=== PATIENT | male | born 1935 | race African-American/Black ===

== ENCOUNTER 2016-12-08 16:57 | Inpatient (IN) | payer MEDICARE ==
[~2016-12-08] VITALS: Ht 167.6 cm; Wt 80.5 kg
[2016-12-08] MEDS ORDERED: IV NORMAL SALINE 1000ML BAG 1,000 ML IV SCH (17:09)
[2016-12-08] MEDS ORDERED: 0.9 % SODIUM CHLORIDE 10 ML DISP.SYRIN. IV PRN (17:15)
[2016-12-08] MEDS ORDERED: FAMOTIDINE 20 MG/2 ML VIAL IVP ONE (17:15)
[2016-12-08] MEDS ORDERED: ONDANSETRON PF 4 MG/2 ML VIAL. IV ONE (17:15)
[2016-12-08] MEDS: HYDROmorphone 2 MG/ML VIAL IV/SQ PRN ×2 (17:29→18:44)
--- NOTE | 2016-12-08 17:29 | PHYS DOC ---
Past Medical History Past Medical History: High Cholesterol, [place], Other Additional Past Medical Histor: PARAPLEGIC, HEMMORRHOIDS Past Surgical History: Other Additional Past Surgical Histo: CARDIAC STENTS, BACK SX, R HAND MIDDLE FINGER AMPUTATION, NECK SX Alcohol Use: Occasionally Drug Use: None Adult General Chief Complaint Chief Complaint: ABDOMINAL PAIN HPI HPI Patient is a pleasant 81-year-old male with a 12 hour history of abdominal pain diffusely described as cramping in waves anywhere from a 4 of 10 to an 8 of 10 with nausea, diarrhea nonbilious nonbloody approximately 3-4 episodes. Patient has been feeling fine until this morning when he woke up with loose stool crampy lower abdominal pain waiting from the umbilicus to the right lower quadrant and the left lower quadrant. He describes no UTI symptoms, no hematuria no back pain but has had some fevers subjectively with chills. He denies any sick contacts, recent travel outside the country, or antibiotic use. He is normally living at home alone he is wheelchair bound but is able to function when family checks on him periodically. He's been able to care for himself without issue. As a trauma, denies any blood in the stool is noted. Pain was not improved with [id number] Motrin. Review of Systems Review of Systems Constitutional: He has stated he has had some fevers subjectively and chills. Eyes: Denies change in visual acuity, redness, or eye pain [] HENT: Denies nasal congestion or sore throat [] Respiratory: Denies cough or shortness of breath [] Cardiovascular: No additional information not addressed in HPI [] GI: History of provided describes crampy abdominal pain, nausea without vomiting he has had some diarrhea without blood or mucus in his stools. : Denies dysuria or hematuria [] Musculoskeletal: Denies back pain or joint pain [] Integument: Denies rash or skin lesions [] Neurologic: Denies headache, focal weakness or sensory changes [] Endocrine: Denies polyuria or polydipsia [] Current Medications Current Medications Current Medications Medications (Trade) Dose Ordered Sig/John Start Time Stop Time Status Last Admin Dose Admin Famotidine (Pepcid) 20 mg 1X ONCE 12/08/16 17:15 12/08/16 17:16 DC 12/08/16 17:28 20 MG Hydromorphone HCl (Dilaudid) 0.5 mg PRN Q15MIN PRN 12/08/16 17:15 12/09/16 17:14 12/08/16 18:44 0.5 MG Iohexol (Omnipaque 300 Mg/ml) 75 ml 1X ONCE 12/08/16 18:30 12/08/16 18:31 DC 12/08/16 19:09 75 ML Ondansetron HCl (Zofran) 4 mg 1X ONCE 12/08/16 17:15 12/08/16 17:16 DC 12/08/16 17:28 4 MG Sodium Chloride (Normal Saline Flush) 10 ml QSHIFT PRN 12/08/16 17:15 Allergies Allergies Allergies Coded Allergies Type Severity Reaction Last Updated Verified No Known Drug Allergies 12/08/16 No Physical Exam Physical Exam Auto signs reviewed patient not hypoxic, not febrile, normotensive Constitutional: Well developed, mildly cachectic but in no acute distress nontoxic in appearance no diaphoresis. HENT: Normocephalic, atraumatic, bilateral external ears normal, right mucous members with poor dentition no oral exudates, nose normal. [] Eyes: PERRLA, EOMI, conjunctiva normal, no discharge. [] Neck: Normal range of motion, no tenderness, supple, no stridor. [] Cardiovascular:Heart rate regular rhythm, no murmur [] Lungs & Thorax: Bilateral breath sounds clear to auscultation [] Abdomen: Diffuse abdominal pain without guarding rebound or organomegaly. No Drake's or McBurney's point tenderness to palpation Rosving's sign. No focal focal tenderness over the suprapubic region. Skin: Warm, dry, no erythema, no rash. [] Back: No tenderness, no CVA tenderness. [] Extremities: No tenderness, no cyanosis, no clubbing, ROM intact, no edema. [] Neurologic: Alert and oriented X 3, normal motor function, normal sensory function, Psychologic: Affect normal, judgement normal, mood normal. [] Current Patient Data Vital Signs Vital Signs Date Time Temp Pulse Resp B/P (MAP) Pulse Ox O2 Delivery O2 Flow Rate FiO2 12/08/16 19:13 84 16 123/68 (86) Room Air 12/08/16 18:44 93 12/08/16 17:00 99.4 99.4 Lab Values Laboratory Tests Test 12/08/16 17:09 12/08/16 17:36 White Blood Count 9.5 x10^3/uL (4.0-11.0) Red Blood Count 4.82 x10^6/uL (4.30-5.70) Hemoglobin 13.0 g/dL (13.0-17.5) Hematocrit 40.6 % (39.0-53.0) Mean Corpuscular Volume 84 fL (79-100) Mean Corpuscular Hemoglobin 27 pg (25-35) Mean Corpuscular Hemoglobin Concent 32 g/dL (31-37) Red Cell Distribution Width 17.1 % (11.5-14.5) H Platelet Count 253 x10^3/uL (140-400) Neutrophils (%) (Auto) 75 % (31-73) H Lymphocytes (%) (Auto) 16 % (24-48) L Monocytes (%) (Auto) 7 % (0-9) Eosinophils (%) (Auto) 2 % (0-3) Basophils (%) (Auto) 1 % (0-3) Neutrophils # (Auto) 7.1 x10^3uL (1.8-7.7) Lymphocytes # (Auto) 1.5 x10^3/uL (1.0-4.8) Monocytes # (Auto) 0.6 x10^3/uL (0.0-1.1) Eosinophils # (Auto) 0.2 x10^3/uL (0.0-0.7) Basophils # (Auto) 0.1 x10^3/uL (0.0-0.2) Troponin I Quantitative < 0.017 ng/mL (0.000-0.055) Sodium Level 144 mmol/L (136-145) Potassium Level 3.8 mmol/L (3.5-5.1) Chloride Level 107 mmol/L (98-107) Carbon Dioxide Level 28 mmol/L (21-32) Anion Gap 9 (6-14) Blood Urea Nitrogen 10 mg/dL (8-26) Creatinine 0.5 mg/dL (0.7-1.3) L Estimated GFR (Cockcroft-Gault) 159.6 BUN/Creatinine Ratio 20 (6-20) Glucose Level 127 mg/dL (70-99) H Calcium Level 9.2 mg/dL (8.5-10.1) Total Bilirubin 0.5 mg/dL (0.2-1.0) Aspartate Amino Transferase (AST) 14 U/L (15-37) L Alanine Aminotransferase (ALT) 13 U/L (16-63) L Alkaline Phosphatase 96 U/L (46-116) Creatine Kinase 72 U/L (39-308) Creatine Kinase MB (Mass) 3.1 ng/mL (0.0-3.6) Creatine Kinase MB Relative Index % (0-4) Total Protein 8.1 g/dL (6.4-8.2) Albumin 3.4 g/dL (3.4-5.0) Albumin/Globulin Ratio 0.7 (1.0-1.7) L Lipase 66 U/L (73-393) L Laboratory Tests 12/08/16 17:09 Laboratory Tests 12/08/16 17:36 EKG EKG EKG timed 1728 12/08/2016 demonstrates a heart rate of 85 RI interval of 144 within normal limits QRS within normal limits 104 demonstrates Q-wave in the anterior leads and V1 with a nonspecific is also considerable movement artifact. By Dr. Calix. [] Radiology/Procedures Radiology/Procedures [] Course & Med Decision Making Course & Med Decision Making Pertinent Labs and Imaging studies reviewed. (See chart for details) H with acute onset of diarrheal illness with nausea without vomiting with subjective fevers and chills. He does at home alone but his history is not suggestive of an infectious etiology associated with raw food consumption infectious exposure , or antibiotics. We will check for blood C. difficile colitis given his state I will offer him admission to the hospital if he is no longer able to tolerate by mouth medication secondary to his nausea. Cell count is mildly elevated with a mild left shift which is likely secondary to whatever express she's having causing his nausea vomiting diarrhea. Patient has normal. This patient's bili wall exam is improved based on fluids is no longer focally tender. Still pending CT abdomen and pelvis is so generally weak secondary to falling loss will likely need fluid hydration and admission to the hospital given his status of living by himself in any is wheelchair-bound. Patient's CT abdomen and pelvis demonstrate Multiple areas of fluid-filled bowel which may represent mild ileus versus early small bowel section. Given patient's diarrhea and dehydration physical exam I will admit the patient for serial belly exams by internal medicine as well as fluids and bowel rest to see if symptoms improve. Impression: Abdominal Pain, leukocytosis, nausea vomiting diarrhea, dehydration, Disposition admission to the hospital to internal medicine with possible GI evaluation of symptoms continue. D/W Dr. Deal who agrees with admission IMAGING REPORT Signed PATIENT: NABEEL HUTCHINS ACCOUNT: [id number] : 1935 LOCATION: ER AGE: 81 SEX: M EXAM STATUS: REG ER ORD. PHYSICIAN: KYLEE CALIX MD REASON: diffuse ab pain PROCEDURE: CT ABD PELV W/ IV CONTRST ONLY INDICATION: 81-year-old male with diffuse abdominal pain, unable to raise arms. COMPARISON: None TECHNIQUE: Axial CT images obtained through the abdomen and pelvis following the intravenous administration of 75 cc of Omni 300. Coronal and sagittal reformats are provided. One or more of the following individualized dose reduction techniques were utilized for this examination: 1. Automated exposure control; 2. Adjustment of the mA and/or kV according to patient size; 3. Use of iterative reconstruction technique. FINDINGS: Calcified granuloma and basilar atelectasis present within the visualized right lung. There is superior positioning/herniation of the left upper quadrant abdominal contents to within the visualized inferior hemithorax. The liver, gallbladder, pancreas, adrenal glands and left kidneys demonstrate no focal abnormality. The visualized spleen is within normal limits, with this superior portion within the left hemithorax not visualized. A round hypodensities present within the posterior right kidney, likely a cyst. Fluid-filled, prominent small bowel loops are present within the mid and lower abdomen, with gradual transition to more decompressed small bowel loops, without a definitive focal transition zone seen. Small bowel loops measure up to 3.5 cm in greatest diameter. Normal wall enhancement is demonstrated. The ascending colon is fluid-filled, with the remainder of the colon decompressed and grossly unremarkable. The urinary bladder is mostly decompressed and not well evaluated. No intra-abdominal or pelvic free fluid, free air or significant lymphadenopathy is seen. The aorta is normal in caliber. Visualized osseous structures and overlying soft tissues demonstrate no acute or suspicious finding. IMPRESSION: Fluid-filled, mildly dilated small bowel loops, without a focal transition zone seen. Findings may represent ileus versus early obstruction. Wall enhancement appears maintained. Other incidental findings, detailed above. Electronically signed by: Merry Benson (December 08, 2016 19:28:44) [] Josephine Disclaimer Dragon Disclaimer This electronic medical record was generated, in whole or in part, using a voice recognition dictation system. Departure Departure Impression: Primary Impression: Abdominal pain Additional Impressions: Nausea & vomiting Diarrhea Admitting Physician: Brenda Deal Condition: IMPROVED Referrals: THANG PALOMO MD (PCP) Problem Qualifiers KYLEE CALIX MD December 08, 2016 17:29
[2016-12-08 17:59] LABS: BASO # 0.1 x10^3/uL (0.0-0.2); BASO % 1 % (0-3); EOS % 2 % (0-3); HEMATOCRIT 40.6 % (39.0-53.0); LYMPH # 1.5 x10^3/uL (1.0-4.8); LYMPH % 16 % (24-48); MEAN CORPUSCULAR HEMOGLOBIN 27 pg (25-35); MEAN CORPUSCULAR HGB CONC 32 g/dL (31-37); MEAN CORPUSCULAR VOLUME 84 fL (79-100); MONO % 7 % (0-9); NEUT % 75 % (31-73); PLATELET COUNT 253 x10^3/uL (140-400); RED BLOOD COUNT 4.82 x10^6/uL (4.30-5.70); RED CELL DISTRIBUTION WIDTH 17.1 % (11.5-14.5); WHITE BLOOD COUNT 9.5 x10^3/uL (4.0-11.0)
[2016-12-08 18:21] LABS: CALCIUM 9.2 mg/dL (8.5-10.1); CREATININE 0.5 mg/dL (0.7-1.3); GFR 159.6; POTASSIUM 3.8 mmol/L (3.5-5.1)
[2016-12-08 18:27] LABS: ALBUMIN 3.4 g/dL (3.4-5.0); ALBUMIN/GLOBULIN RATIO 0.7 (1.0-1.7); TOTAL BILIRUBIN 0.5 mg/dL (0.2-1.0); TOTAL PROTEIN 8.1 g/dL (6.4-8.2)
[2016-12-08 18:30] LABS: CKMB MASS 3.1 ng/mL (0.0-3.6); CREATINE KINASE 72 U/L (39-308)
[2016-12-08] MEDS ORDERED: IOHEXOL 300 MG/ML 75 ML VIAL IV ONE (18:30)
[2016-12-08 19:06] LABS: BILIRUBIN,URINE NEGATIVE (NEG); GLUCOSE,URINE NEGATIVE (NEG); NITRITE,URINE NEGATIVE (NEG); PH,URINE 5.5; PROTEIN,URINE NEGATIVE (NEG-TRACE); UROBILINOGEN,URINE 0.2 mg/dL (0.2 mg/dL)
--- NOTE | 2016-12-08 19:29 | RAD ---
INDICATION: 81-year-old male with diffuse abdominal pain, unable to raise arms. COMPARISON: None TECHNIQUE: Axial CT images obtained through the abdomen and pelvis following the intravenous administration of 75 cc of Omni 300. Coronal and sagittal reformats are provided. One or more of the following individualized dose reduction techniques were utilized for this examination: 1. Automated exposure control; 2. Adjustment of the mA and/or kV according to patient size; 3. Use of iterative reconstruction technique. FINDINGS: Calcified granuloma and basilar atelectasis present within the visualized right lung. There is superior positioning/herniation of the left upper quadrant abdominal contents to within the visualized inferior hemithorax. The liver, gallbladder, pancreas, adrenal glands and left kidneys demonstrate no focal abnormality. The visualized spleen is within normal limits, with this superior portion within the left hemithorax not visualized. A round hypodensities present within the posterior right kidney, likely a cyst. Fluid-filled, prominent small bowel loops are present within the mid and lower abdomen, with gradual transition to more decompressed small bowel loops, without a definitive focal transition zone seen. Small bowel loops measure up to 3.5 cm in greatest diameter. Normal wall enhancement is demonstrated. The ascending colon is fluid-filled, with the remainder of the colon decompressed and grossly unremarkable. The urinary bladder is mostly decompressed and not well evaluated. No intra-abdominal or pelvic free fluid, free air or significant lymphadenopathy is seen. The aorta is normal in caliber. Visualized osseous structures and overlying soft tissues demonstrate no acute or suspicious finding. IMPRESSION: Fluid-filled, mildly dilated small bowel loops, without a focal transition zone seen. Findings may represent ileus versus early obstruction. Wall enhancement appears maintained. Other incidental findings, detailed above. Electronically signed by: Merry Benson (December 08, 2016 19:28:44)
[2016-12-08 19:31] LABS: BACTERIA,URINE FEW /HPF (0-FEW); RBC,URINE 0 /HPF (0-2); SQUAMOUS EPITHELIAL CELL,UR OCC /LPF; WBC,URINE OCC /HPF (0-4)
[2016-12-08] MEDS ORDERED: ONDANSETRON PF 4 MG/2 ML VIAL. IV PRN (19:45)
[2016-12-08] MEDS ORDERED: fentaNYL PF VIAL 100 MCG/2 ML VIAL IV PRN (19:45)
[2016-12-08 20:45] VITALS: BP 126/75
--- NOTE | 2016-12-08 21:13 | PDOC1 ---
History and Physical Date of Admission Date of Admission DATE: 12/08/16 TIME: 21:05 Identification/Chief Complaint Chief Complaint nausea and diarrhea Problems: Source Source: Chart review, Patient History of Present Illness History of Present Illness Mr. Garcia, is a pleasant 81-year-old male, seen in ER, with new nausea and abdominal pain. DIffuse pain 7/10, and nausea and new diarrhea today only, no prior, this pain is colicky, w/ cramps and in waves loose stools with the cramps and new pain, today. some subjective fevers and chills. no travel, no sick contacts He lives alone, [employer] served in [employer], is wheelchair bound after neck surgery in 1995, w/ foot drop and hand weakness he is a , his of ALS Past Medical History Cardiovascular: CHF, HTN Pulmonary: COPD CENTRAL NERVOUS SYSTEM: Other GI: No pertinent hx Hepatobiliary: No pertinent hx Musculoskeletal: low back pain, Swelling, Stiffness Rheumatologic: No pertinent hx Renal/: No pertinent hx Endocrine: No pertinent hx Past Surgical History Past Surgical History: Other Family History Family History: No Significant Social History Smoke: No ALCOHOL: rare Drugs: None Current Problem List Problem List Problems Medical Problems: (1) Abdominal pain Status: Acute (2) Diarrhea Status: Acute (3) Nausea & vomiting Status: Acute Problems: Current Medications Current Medications Current Medications Hydromorphone HCl (Dilaudid) 0.5 mg PRN Q15MIN PRN IV/SQ PAIN GREATER THAN 3/ 10 Last administered on 12/08/16 18:44; Start 12/08/16 at 17:15; Stop 12/09/16 at 17:14 Sodium Chloride 1,000 ml @ 1,000 mls/hr Q1H IV Last administered on 12/08/16 17:28; Start 12/08/16 at 17:09; Stop 12/08/16 at 18:08; Status DC Sodium Chloride (Normal Saline Flush) 10 ml QSHIFT PRN IV AFTER MEDS AND BLOOD DRAWS; Start 12/08/16 at 17:15 Ondansetron HCl (Zofran) 4 mg 1X ONCE IV Last administered on 12/08/16 17:28 ; Start 12/08/16 at 17:15; Stop 12/08/16 at 17:16; Status DC Famotidine (Pepcid) 20 mg 1X ONCE IVP Last administered on 12/08/16t 17:28; Start 12/08/16 at 17:15; Stop 12/08/16 at 17:16; Status DC Iohexol (Omnipaque 300 Mg/ml) 75 ml 1X ONCE IV Last administered on 12/08/16t 19:09; Start 12/08/16 at 18:30; Stop 12/08/16 at 18:31; Status DC Ondansetron HCl (Zofran) 4 mg PRN Q8HRS PRN IV NAUSEA/VOMITING; Start 12/08/16 at 19:45; Stop 12/09/16 at 19:44 Fentanyl Citrate (Fentanyl 2ml Vial) 50 mcg PRN Q2HR PRN IV PAIN; Start at 19:45; Stop 12/09/16 at 19:44 Sodium Chloride 1,000 ml @ 100 mls/hr Q10H IV ; Start 12/08/16 at 19:35; Stop 12/09/16 at 19:34 Allergies Allergies: Coded Allergies: No Known Drug Allergies (Unverified , 12/08/16) ROS General: YES: Chills, Fatigue, Malaise, No: Night Sweats, Appetite, Other PSYCHOLOGICAL ROS: YES: Sleep disturbances, No: Anxiety, Behavioral Disorder, Concentration difficultie, Decreased libido , Depression, Disorientation, Hallucinations, Hostility, Irritablity, Memory difficulties, Mood Swings Eyes: No Blurry vision, No Decreased vision, No Double vision, No Dry eyes, No Excessive tearing, No Eye Pain, No Itchy Eyes, No Loss of vision, No Photophobia , No Scotomata, No Uses contacts, No Uses glasses, No Other HEENT: YES: Heacaches, No: Visual Changes, Hearing change, Nasal congestion, Nasal discharge, Oral lesions, Sinus pain, Sore Throat, Epistaxis, Sneezing, Snoring, Tinnitus, Vertigo, Vocal changes, Other Respiratory: No: Cough, Hemoptysis, Orthopnea, Pleuritic Pain, Shortness of breath, SOB with excertion, Sputum Changes, Stridor, Tachypnea, Wheezing, Other Cardiovascular: No Chest Pain, No Palpitations, No Orthopnea, No Paroxysmal Noc. Dyspnea, No Edema, No Lt Headedness, No Other Gastrointestinal: Yes Nausea, Yes Vomiting, Yes Abdominal Pain, Yes Diarrhea Genitourinary: No Dysuria, No Frequency, No Incontinence, No Hematuria, No Retention, No Discharge, No Urgency, No Pain, No Flank Pain, No Other, No , No , No , No , No , No , No Musculoskeletal: Yes Joint Stiffness, Yes Muscular Weakness, Yes Pain In: Neurological: Yes Numbness/Tingling, No Behavorial Changes, No Bowel/Bladder ControlChng, No Confusion, No Dizziness, No Gait Disturbance, No Headaches, No Impaired Coord/balance, No Memory Loss, No Seizures, No Speech Problems, No Tremors, No Visual Changes, No Weakness, No Other Skin: Yes Lumps Physical Exam General: Alert, No acute distress HEENT: Atraumatic, PERRLA, EOMI, Mucous membr. moist/pink Lungs: Clear to auscultation, Normal air movement Heart: S1S2, no gallops, no murmurs Abdomen: Soft (tender diffusely, no guarding, no rebound, active sounds) Rectal Exam: not examined Extremities: No clubbing, No edema, Other (muscle wasting of hands and feet) Skin: No rashes, No breakdown, No significant lesion Neuro: Normal speech, Sensation intact Vitals Vitals Vital Signs Date Time Temp Pulse Resp B/P (MAP) Pulse Ox O2 Delivery O2 Flow Rate FiO2 12/08/16 19:13 84 16 123/68 (86) Room Air 12/08/16 18:44 93 12/08/16 17:00 99.4 99.4 Labs Labs Laboratory Tests Test 12/08/16 17:09 12/08/16 17:36 12/08/16 18:40 White Blood Count 9.5 x10^3/uL (4.0-11.0) Red Blood Count 4.82 x10^6/uL (4.30-5.70) Hemoglobin 13.0 g/dL (13.0-17.5) Hematocrit 40.6 % (39.0-53.0) Mean Corpuscular Volume 84 fL (79-100) Mean Corpuscular Hemoglobin 27 pg (25-35) Mean Corpuscular Hemoglobin Concent 32 g/dL (31-37) Red Cell Distribution Width 17.1 % (11.5-14.5) Platelet Count 253 x10^3/uL (140-400) Neutrophils (%) (Auto) 75 % (31-73) Lymphocytes (%) (Auto) 16 % (24-48) Monocytes (%) (Auto) 7 % (0-9) Eosinophils (%) (Auto) 2 % (0-3) Basophils (%) (Auto) 1 % (0-3) Neutrophils # (Auto) 7.1 x10^3uL (1.8-7.7) Lymphocytes # (Auto) 1.5 x10^3/uL (1.0-4.8) Monocytes # (Auto) 0.6 x10^3/uL (0.0-1.1) Eosinophils # (Auto) 0.2 x10^3/uL (0.0-0.7) Basophils # (Auto) 0.1 x10^3/uL (0.0-0.2) Troponin I Quantitative < 0.017 ng/mL (0.000-0.055) Sodium Level 144 mmol/L (136-145) Potassium Level 3.8 mmol/L (3.5-5.1) Chloride Level 107 mmol/L (98-107) Carbon Dioxide Level 28 mmol/L (21-32) Anion Gap 9 (6-14) Blood Urea Nitrogen 10 mg/dL (8-26) Creatinine 0.5 mg/dL (0.7-1.3) Estimated GFR (Cockcroft-Gault) 159.6 BUN/Creatinine Ratio 20 (6-20) Glucose Level 127 mg/dL (70-99) Calcium Level 9.2 mg/dL (8.5-10.1) Total Bilirubin 0.5 mg/dL (0.2-1.0) Aspartate Amino Transf (AST/SGOT) 14 U/L (15-37) Alanine Aminotransferase (ALT/SGPT) 13 U/L (16-63) Alkaline Phosphatase 96 U/L (46-116) Creatine Kinase 72 U/L (39-308) Creatine Kinase MB (Mass) 3.1 ng/mL (0.0-3.6) Creatine Kinase MB Relative Index % (0-4) Total Protein 8.1 g/dL (6.4-8.2) Albumin 3.4 g/dL (3.4-5.0) Albumin/Globulin Ratio 0.7 (1.0-1.7) Lipase 66 U/L (73-393) Urine Collection Type Unknown Urine Color Yellow Urine Clarity Clear Urine pH 5.5 Urine Specific Massey 1.015 Urine Protein Negative mg/dL (NEG-TRACE) Urine Glucose (UA) Negative mg/dL (NEG) Urine Ketones (Stick) 15 mg/dL (NEG) Urine Blood Negative (NEG) Urine Nitrite Negative (NEG) Urine Bilirubin Negative (NEG) Urine Urobilinogen Dipstick 0.2 mg/dL (0.2 mg/dL) Urine Leukocyte Esterase Negative (NEG) Urine RBC 0 /HPF (0-2) Urine WBC Occ /HPF (0-4) Urine Squamous Epithelial Cells Occ /LPF Urine Bacteria Few /HPF (0-FEW) Urine Hyaline Casts Few /HPF Urine Mucus Slight /LPF Laboratory Tests Test 12/08/16 17:09 12/08/16 17:36 12/08/16 18:40 White Blood Count 9.5 x10^3/uL (4.0-11.0) Red Blood Count 4.82 x10^6/uL (4.30-5.70) Hemoglobin 13.0 g/dL (13.0-17.5) Hematocrit 40.6 % (39.0-53.0) Mean Corpuscular Volume 84 fL (79-100) Mean Corpuscular Hemoglobin 27 pg (25-35) Mean Corpuscular Hemoglobin Concent 32 g/dL (31-37) Red Cell Distribution Width 17.1 % (11.5-14.5) Platelet Count 253 x10^3/uL (140-400) Neutrophils (%) (Auto) 75 % (31-73) Lymphocytes (%) (Auto) 16 % (24-48) Monocytes (%) (Auto) 7 % (0-9) Eosinophils (%) (Auto) 2 % (0-3) Basophils (%) (Auto) 1 % (0-3) Neutrophils # (Auto) 7.1 x10^3uL (1.8-7.7) Lymphocytes # (Auto) 1.5 x10^3/uL (1.0-4.8) Monocytes # (Auto) 0.6 x10^3/uL (0.0-1.1) Eosinophils # (Auto) 0.2 x10^3/uL (0.0-0.7) Basophils # (Auto) 0.1 x10^3/uL (0.0-0.2) Troponin I Quantitative < 0.017 ng/mL (0.000-0.055) Sodium Level 144 mmol/L (136-145) Potassium Level 3.8 mmol/L (3.5-5.1) Chloride Level 107 mmol/L (98-107) Carbon Dioxide Level 28 mmol/L (21-32) Anion Gap 9 (6-14) Blood Urea Nitrogen 10 mg/dL (8-26) Creatinine 0.5 mg/dL (0.7-1.3) Estimated GFR (Cockcroft-Gault) 159.6 BUN/Creatinine Ratio 20 (6-20) Glucose Level 127 mg/dL (70-99) Calcium Level 9.2 mg/dL (8.5-10.1) Total Bilirubin 0.5 mg/dL (0.2-1.0) Aspartate Amino Transf (AST/SGOT) 14 U/L (15-37) Alanine Aminotransferase (ALT/SGPT) 13 U/L (16-63) Alkaline Phosphatase 96 U/L (46-116) Creatine Kinase 72 U/L (39-308) Creatine Kinase MB (Mass) 3.1 ng/mL (0.0-3.6) Creatine Kinase MB Relative Index % (0-4) Total Protein 8.1 g/dL (6.4-8.2) Albumin 3.4 g/dL (3.4-5.0) Albumin/Globulin Ratio 0.7 (1.0-1.7) Lipase 66 U/L (73-393) Urine Collection Type Unknown Urine Color Yellow Urine Clarity Clear Urine pH 5.5 Urine Specific Massey 1.015 Urine Protein Negative mg/dL (NEG-TRACE) Urine Glucose (UA) Negative mg/dL (NEG) Urine Ketones (Stick) 15 mg/dL (NEG) Urine Blood Negative (NEG) Urine Nitrite Negative (NEG) Urine Bilirubin Negative (NEG) Urine Urobilinogen Dipstick 0.2 mg/dL (0.2 mg/dL) Urine Leukocyte Esterase Negative (NEG) Urine RBC 0 /HPF (0-2) Urine WBC Occ /HPF (0-4) Urine Squamous Epithelial Cells Occ /LPF Urine Bacteria Few /HPF (0-FEW) Urine Hyaline Casts Few /HPF Urine Mucus Slight /LPF VTE Prophylaxis Ordered VTE Prophylaxis Devices: Yes VTE Pharmacological Prophylaxi: Yes Assessment/Plan Assessment/Plan Nausea and vomtiing and diarrhea SIRS, RR 21 and P 92, transient and improved with fluid Possible viral enteritis, give IV fluid and supportive care, nausea meds GI consult, routine quadraparesis, foot drop, diffuse weakness, and possible torticollis of his neck, consult Physiatry to follow, pt reports doing well at home alone previously COOPER FINCH MD December 08, 2016 21:13
[2016-12-08] MEDS: IV NORMAL SALINE 1000ML BAG 1,000 ML IV SCH (22:09)
[2016-12-08 23:00] VITALS: BP 113/64
[2016-12-09 03:00] VITALS: BP 120/69
[2016-12-09] MEDS: IV NORMAL SALINE 1000ML BAG 1,000 ML IV SCH ×2 (06:42→16:19)
[2016-12-09 07:14] LABS: ALBUMIN 2.8 g/dL (3.4-5.0); ALBUMIN/GLOBULIN RATIO 0.8 (1.0-1.7); CREATININE 0.4 mg/dL (0.7-1.3); GFR 249.8; POTASSIUM 3.3 mmol/L (3.5-5.1); TOTAL BILIRUBIN 0.4 mg/dL (0.2-1.0); TOTAL PROTEIN 6.5 g/dL (6.4-8.2)
[2016-12-09 07:15] LABS: CALCIUM 8.5 mg/dL (8.5-10.1)
[2016-12-09 07:17] LABS: BASO # 0.1 x10^3/uL (0.0-0.2); BASO % 1 % (0-3); EOS % 3 % (0-3); HEMATOCRIT 35.4 % (39.0-53.0); HEMOGLOBIN 11.6 g/dL (13.0-17.5); LYMPH # 2.3 x10^3/uL (1.0-4.8); LYMPH % 30 % (24-48); MEAN CORPUSCULAR HEMOGLOBIN 27 pg (25-35); MEAN CORPUSCULAR HGB CONC 33 g/dL (31-37); MEAN CORPUSCULAR VOLUME 83 fL (79-100); MONO % 8 % (0-9); NEUT % 58 % (31-73); PLATELET COUNT 209 x10^3/uL (140-400); RED BLOOD COUNT 4.27 x10^6/uL (4.30-5.70); RED CELL DISTRIBUTION WIDTH 16.5 % (11.5-14.5); WHITE BLOOD COUNT 7.7 x10^3/uL (4.0-11.0)
[2016-12-09 07:30] VITALS: BP 106/60
--- NOTE | 2016-12-09 08:35 | EKG ---
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
--- NOTE | 2016-12-09 10:04 | PDOC2 ---
GI CONSULT Reason For Consult: Enteritis HPI: HPI: 81 y/o AA male, lives alone at home, WC bound w/ upper and lower extremity weakness following neck surgery. Reports vomiting, diarrhea, and abd pain began yesterday w/o precipitating events. No change in medication, no travel, no sick contacts. No recurrent symptoms here, pain resolved. CT w/ fluid- filled dilated small bowel loops w/o obstruction. Reports previous EGD and colonoscopy about 2-3 years ago, doesn't recall any significant finding. Reflux about once weekly improved w/ soda water. Says decreased appetite, but only yesterday. No dysphagia, melena, hematochezia, weight loss. H/o CAD on Plavix, no NSAIDs. Per RN, asking to eat. PMH: PMH: CAD (2 cardiac stents), CHF, HTN, COPD, prostate cancer (w/ injections Q 90 days in [place]), OA, gout, hemorrhoids, PTSD, right finger amputation, neck surgery w/ residual upper and lower extremity weakness (WC bound) FH: Family History: No pertinent hx Social History: Smoke: Quit ALCOHOL: rare (1 beer monthly) Drugs: None ROS: GEN: Denies fevers, chills, sweats HEENT: Denies blurred vision, sore throat CV: Denies chest pain RESP: Denies shortness of air, cough GI: Per HPI : Denies hematuria, dysuria ENDO: Denies weight changes NEURO: Denies confusion, dizziness MSK: +leg pain +upper and lower extremity weakness SKIN: Denies jaundice, pruritus Vitals: Vitals: Vital Signs Date Time Temp Pulse Resp B/P (MAP) Pulse Ox O2 Delivery O2 Flow Rate FiO2 12/09/16 07:30 97.9 68 16 106/60 (75) 96 Room Air 97.9 Labs: Labs: Laboratory Tests Test 12/08/16 17:09 12/08/16 17:36 12/08/16 18:40 12/09/16 06:50 White Blood Count 9.5 x10^3/uL (4.0-11.0) 7.7 x10^3/uL (4.0-11.0) Red Blood Count 4.82 x10^6/uL (4.30-5.70) 4.27 x10^6/uL (4.30-5.70) Hemoglobin 13.0 g/dL (13.0-17.5) 11.6 g/dL (13.0-17.5) Hematocrit 40.6 % (39.0-53.0) 35.4 % (39.0-53.0) Mean Corpuscular Volume 84 fL (79-100) 83 fL (79-100) Mean Corpuscular Hemoglobin 27 pg (25-35) 27 pg (25-35) Mean Corpuscular Hemoglobin Concent 32 g/dL (31-37) 33 g/dL (31-37) Red Cell Distribution Width 17.1 % (11.5-14.5) 16.5 % (11.5-14.5) Platelet Count 253 x10^3/uL (140-400) 209 x10^3/uL (140-400) Neutrophils (%) (Auto) 75 % (31-73) 58 % (31-73) Lymphocytes (%) (Auto) 16 % (24-48) 30 % (24-48) Monocytes (%) (Auto) 7 % (0-9) 8 % (0-9) Eosinophils (%) (Auto) 2 % (0-3) 3 % (0-3) Basophils (%) (Auto) 1 % (0-3) 1 % (0-3) Neutrophils # (Auto) 7.1 x10^3uL (1.8-7.7) 4.5 x10^3uL (1.8-7.7) Lymphocytes # (Auto) 1.5 x10^3/uL (1.0-4.8) 2.3 x10^3/uL (1.0-4.8) Monocytes # (Auto) 0.6 x10^3/uL (0.0-1.1) 0.6 x10^3/uL (0.0-1.1) Eosinophils # (Auto) 0.2 x10^3/uL (0.0-0.7) 0.2 x10^3/uL (0.0-0.7) Basophils # (Auto) 0.1 x10^3/uL (0.0-0.2) 0.1 x10^3/uL (0.0-0.2) Troponin I Quantitative < 0.017 ng/mL (0.000-0.055) Sodium Level 144 mmol/L (136-145) 145 mmol/L (136-145) Potassium Level 3.8 mmol/L (3.5-5.1) 3.3 mmol/L (3.5-5.1) Chloride Level 107 mmol/L (98-107) 110 mmol/L (98-107) Carbon Dioxide Level 28 mmol/L (21-32) 28 mmol/L (21-32) Anion Gap 9 (6-14) 7 (6-14) Blood Urea Nitrogen 10 mg/dL (8-26) 6 mg/dL (8-26) Creatinine 0.5 mg/dL (0.7-1.3) 0.4 mg/dL (0.7-1.3) Estimated GFR (Cockcroft-Gault) 159.6 249.8 BUN/Creatinine Ratio 20 (6-20) 15 (6-20) Glucose Level 127 mg/dL (70-99) 85 mg/dL (70-99) Calcium Level 9.2 mg/dL (8.5-10.1) 8.5 mg/dL (8.5-10.1) Total Bilirubin 0.5 mg/dL (0.2-1.0) 0.4 mg/dL (0.2-1.0) Aspartate Amino Transf (AST/SGOT) 14 U/L (15-37) 13 U/L (15-37) Alanine Aminotransferase (ALT/SGPT) 13 U/L (16-63) 11 U/L (16-63) Alkaline Phosphatase 96 U/L (46-116) 81 U/L (46-116) Creatine Kinase 72 U/L (39-308) Creatine Kinase MB (Mass) 3.1 ng/mL (0.0-3.6) Creatine Kinase MB Relative Index % (0-4) Total Protein 8.1 g/dL (6.4-8.2) 6.5 g/dL (6.4-8.2) Albumin 3.4 g/dL (3.4-5.0) 2.8 g/dL (3.4-5.0) Albumin/Globulin Ratio 0.7 (1.0-1.7) 0.8 (1.0-1.7) Lipase 66 U/L (73-393) Urine Collection Type Unknown Urine Color Yellow Urine Clarity Clear Urine pH 5.5 Urine Specific [place] 1.015 Urine Protein Negative mg/dL (NEG-TRACE) Urine Glucose (UA) Negative mg/dL (NEG) Urine Ketones (Stick) 15 mg/dL (NEG) Urine Blood Negative (NEG) Urine Nitrite Negative (NEG) Urine Bilirubin Negative (NEG) Urine Urobilinogen Dipstick 0.2 mg/dL (0.2 mg/dL) Urine Leukocyte Esterase Negative (NEG) Urine RBC 0 /HPF (0-2) Urine WBC Occ /HPF (0-4) Urine Squamous Epithelial Cells Occ /LPF Urine Bacteria Few /HPF (0-FEW) Urine Hyaline Casts Few /HPF Urine Mucus Slight /LPF Allergies: Coded Allergies: No Known Drug Allergies (Unverified , 12/08/16) Medications: Current Medications Medications (Trade) Dose Ordered Sig/John Route PRN Reason Start Time Stop Time Status Last Admin Dose Admin Hydromorphone HCl (Dilaudid) 0.5 mg PRN Q15MIN PRN IV/SQ PAIN GREATER THAN 3/10 12/08/16 17:15 12/09/16 17:14 12/08/16 18:44 Sodium Chloride 1,000 ml @ 1,000 mls/hr Q1H IV 12/08/16 17:09 12/08/16 18:08 DC 12/08/16 17:28 Ondansetron HCl (Zofran) 4 mg 1X ONCE IV 12/08/16 17:15 12/08/16 17:16 DC 12/08/16 17:28 Famotidine (Pepcid) 20 mg 1X ONCE IVP 12/08/16 17:15 12/08/16 17:16 DC 12/08/16 17:28 Iohexol (Omnipaque 300 Mg/ml) 75 ml 1X ONCE IV 12/08/16 18:30 12/08/16 18:31 DC 12/08/16 19:09 Sodium Chloride 1,000 ml @ 100 mls/hr Q10H IV 12/08/16 19:35 12/09/16 19:34 12/09/16 06:42 Imaging: Imaging: CT A/P 12/08/16 FINDINGS: Calcified granuloma and basilar atelectasis present within the visualized right lung. There is superior positioning/herniation of the left upper quadrant abdominal contents to within the visualized inferior hemithorax. The liver, gallbladder, pancreas, adrenal glands and left kidneys demonstrate no focal abnormality. The visualized spleen is within normal limits, with this superior portion within the left hemithorax not visualized. A round hypodensities present within the posterior right kidney, likely a cyst. Fluid-filled, prominent small bowel loops are present within the mid and lower abdomen, with gradual transition to more decompressed small bowel loops, without a definitive focal transition zoneseen. Small bowel loops measure up to 3.5 cm in greatest diameter. Normal wall enhancement is demonstrated. The ascending colon is fluid- filled, with the remainder of the colon decompressed and grossly unremarkable. The urinary bladder is mostly decompressed and not well evaluated. No intra- abdominal or pelvic free fluid, free air or significant lymphadenopathy is seen. The aorta is normal in caliber. Visualized osseous structures and overlying soft tissues demonstrate no acute or suspicious finding. IMPRESSION: Fluid-filled, mildly dilated small bowel loops, without a focal transition zone seen. Findings may represent ileus versus early obstruction. Wall enhancement appears maintained. Other incidental findings, detailed above. PE: GEN: NAD HEENT: Atraumatic, PERRL LUNGS: CTAB HEART: RRR ABD: NABS, S/ND/NT EXTREMITY: No edema SKIN: No rashes, no jaundice NEURO/PSYCH: A & O 3 A/P: A/P: Vomiting, abd pain, diarrhea - improved -acute onset yesterday, no precipitating events -CT as above, mild dilation of SB loops H/o acid reflux -once weekly, improved w/ soda water -reports normal EGD 2-3 years ago CRC screen -says normal colonoscopy 2-3 years ago -- ?viral Asking to eat - try clears. Other per Dr. Ratliff. NEGRITO GARCIA December 09, 2016 10:04
[2016-12-09 11:00] VITALS: BP 127/65
--- NOTE | 2016-12-09 12:04 | PDOC ---
PROGRESS NOTES Chief Complaint Chief Complaint 1. Abdominal pain- N/V 2. CHF 3. HTN 4. COPD 5. Low back pain, Swelling, Stiffness History of Present Illness History of Present Illness Patient seen this am in NAD. Patient reports having a little loose stool. Informed patient of CT results. Informed patient we would replace potassium, since his is a little low at 3.3. Discussed with patient about SNU eval. Patient understands plan of action. Vitals Vitals Vital Signs Date Time Temp Pulse Resp B/P (MAP) Pulse Ox O2 Delivery O2 Flow Rate FiO2 12/09/16 08:00 Room Air 12/09/16 07:30 97.9 68 16 106/60 (75) 96 97.9 Physical Exam General: Alert, Oriented X3, Cooperative, No acute distress Heart: Regular rate, Normal S1, Normal S2 Lungs: Clear Abdomen: Soft (tender diffusely, no guarding, no rebound, active sounds), No hepatosplenomegaly, No masses Extremities: No clubbing, No edema, Other (muscle wasting of hands and feet) Skin: No rashes, No breakdown, No significant lesion Labs LABS Laboratory Tests Test 12/08/16 17:09 12/08/16 17:36 12/08/16 18:40 12/09/16 06:50 White Blood Count 9.5 x10^3/uL (4.0-11.0) 7.7 x10^3/uL (4.0-11.0) Red Blood Count 4.82 x10^6/uL (4.30-5.70) 4.27 x10^6/uL (4.30-5.70) Hemoglobin 13.0 g/dL (13.0-17.5) 11.6 g/dL (13.0-17.5) Hematocrit 40.6 % (39.0-53.0) 35.4 % (39.0-53.0) Mean Corpuscular Volume 84 fL (79-100) 83 fL (79-100) Mean Corpuscular Hemoglobin 27 pg (25-35) 27 pg (25-35) Mean Corpuscular Hemoglobin Concent 32 g/dL (31-37) 33 g/dL (31-37) Red Cell Distribution Width 17.1 % (11.5-14.5) 16.5 % (11.5-14.5) Platelet Count 253 x10^3/uL (140-400) 209 x10^3/uL (140-400) Neutrophils (%) (Auto) 75 % (31-73) 58 % (31-73) Lymphocytes (%) (Auto) 16 % (24-48) 30 % (24-48) Monocytes (%) (Auto) 7 % (0-9) 8 % (0-9) Eosinophils (%) (Auto) 2 % (0-3) 3 % (0-3) Basophils (%) (Auto) 1 % (0-3) 1 % (0-3) Neutrophils # (Auto) 7.1 x10^3uL (1.8-7.7) 4.5 x10^3uL (1.8-7.7) Lymphocytes # (Auto) 1.5 x10^3/uL (1.0-4.8) 2.3 x10^3/uL (1.0-4.8) Monocytes # (Auto) 0.6 x10^3/uL (0.0-1.1) 0.6 x10^3/uL (0.0-1.1) Eosinophils # (Auto) 0.2 x10^3/uL (0.0-0.7) 0.2 x10^3/uL (0.0-0.7) Basophils # (Auto) 0.1 x10^3/uL (0.0-0.2) 0.1 x10^3/uL (0.0-0.2) Troponin I Quantitative < 0.017 ng/mL (0.000-0.055) Sodium Level 144 mmol/L (136-145) 145 mmol/L (136-145) Potassium Level 3.8 mmol/L (3.5-5.1) 3.3 mmol/L (3.5-5.1) Chloride Level 107 mmol/L (98-107) 110 mmol/L (98-107) Carbon Dioxide Level 28 mmol/L (21-32) 28 mmol/L (21-32) Anion Gap 9 (6-14) 7 (6-14) Blood Urea Nitrogen 10 mg/dL (8-26) 6 mg/dL (8-26) Creatinine 0.5 mg/dL (0.7-1.3) 0.4 mg/dL (0.7-1.3) Estimated GFR (Cockcroft-Gault) 159.6 249.8 BUN/Creatinine Ratio 20 (6-20) 15 (6-20) Glucose Level 127 mg/dL (70-99) 85 mg/dL (70-99) Calcium Level 9.2 mg/dL (8.5-10.1) 8.5 mg/dL (8.5-10.1) Total Bilirubin 0.5 mg/dL (0.2-1.0) 0.4 mg/dL (0.2-1.0) Aspartate Amino Transf (AST/SGOT) 14 U/L (15-37) 13 U/L (15-37) Alanine Aminotransferase (ALT/SGPT) 13 U/L (16-63) 11 U/L (16-63) Alkaline Phosphatase 96 U/L (46-116) 81 U/L (46-116) Creatine Kinase 72 U/L (39-308) Creatine Kinase MB (Mass) 3.1 ng/mL (0.0-3.6) Creatine Kinase MB Relative Index % (0-4) Total Protein 8.1 g/dL (6.4-8.2) 6.5 g/dL (6.4-8.2) Albumin 3.4 g/dL (3.4-5.0) 2.8 g/dL (3.4-5.0) Albumin/Globulin Ratio 0.7 (1.0-1.7) 0.8 (1.0-1.7) Lipase 66 U/L (73-393) Urine Collection Type Unknown Urine Color Yellow Urine Clarity Clear Urine pH 5.5 Urine Specific [place] 1.015 Urine Protein Negative mg/dL (NEG-TRACE) Urine Glucose (UA) Negative mg/dL (NEG) Urine Ketones (Stick) 15 mg/dL (NEG) Urine Blood Negative (NEG) Urine Nitrite Negative (NEG) Urine Bilirubin Negative (NEG) Urine Urobilinogen Dipstick 0.2 mg/dL (0.2 mg/dL) Urine Leukocyte Esterase Negative (NEG) Urine RBC 0 /HPF (0-2) Urine WBC Occ /HPF (0-4) Urine Squamous Epithelial Cells Occ /LPF Urine Bacteria Few /HPF (0-FEW) Urine Hyaline Casts Few /HPF Urine Mucus Slight /LPF Review of Systems Review of Systems No vomiting today No rashes No SINGLETARY/blurry vision No SOB No chest pain No JVD Assessment and Plan Assessmemt and Plan Problems Medical Problems: (1) Abdominal pain Status: Acute (2) Diarrhea Status: Acute (3) Nausea & vomiting Status: Acute 4. CHF 5. HTN 6. COPD 7. Low back pain, Swelling, Stiffness Plan: -Continue current medications and adjust accordingly as needed. -Administer 40 mEq KCl PO 1x. -Continue PT/OT. -Continue specialty consultation. -Involve SW for SNU eval. Problems: Comment Review of Relevant I have reviewed the following items wally (where applicable) has been applied. Labs Laboratory Tests Test 12/08/16 17:09 12/08/16 17:36 12/08/16 18:40 12/09/16 06:50 White Blood Count 9.5 x10^3/uL (4.0-11.0) 7.7 x10^3/uL (4.0-11.0) Red Blood Count 4.82 x10^6/uL (4.30-5.70) 4.27 x10^6/uL (4.30-5.70) Hemoglobin 13.0 g/dL (13.0-17.5) 11.6 g/dL (13.0-17.5) Hematocrit 40.6 % (39.0-53.0) 35.4 % (39.0-53.0) Mean Corpuscular Volume 84 fL (79-100) 83 fL (79-100) Mean Corpuscular Hemoglobin 27 pg (25-35) 27 pg (25-35) Mean Corpuscular Hemoglobin Concent 32 g/dL (31-37) 33 g/dL (31-37) Red Cell Distribution Width 17.1 % (11.5-14.5) 16.5 % (11.5-14.5) Platelet Count 253 x10^3/uL (140-400) 209 x10^3/uL (140-400) Neutrophils (%) (Auto) 75 % (31-73) 58 % (31-73) Lymphocytes (%) (Auto) 16 % (24-48) 30 % (24-48) Monocytes (%) (Auto) 7 % (0-9) 8 % (0-9) Eosinophils (%) (Auto) 2 % (0-3) 3 % (0-3) Basophils (%) (Auto) 1 % (0-3) 1 % (0-3) Neutrophils # (Auto) 7.1 x10^3uL (1.8-7.7) 4.5 x10^3uL (1.8-7.7) Lymphocytes # (Auto) 1.5 x10^3/uL (1.0-4.8) 2.3 x10^3/uL (1.0-4.8) Monocytes # (Auto) 0.6 x10^3/uL (0.0-1.1) 0.6 x10^3/uL (0.0-1.1) Eosinophils # (Auto) 0.2 x10^3/uL (0.0-0.7) 0.2 x10^3/uL (0.0-0.7) Basophils # (Auto) 0.1 x10^3/uL (0.0-0.2) 0.1 x10^3/uL (0.0-0.2) Troponin I Quantitative < 0.017 ng/mL (0.000-0.055) Sodium Level 144 mmol/L (136-145) 145 mmol/L (136-145) Potassium Level 3.8 mmol/L (3.5-5.1) 3.3 mmol/L (3.5-5.1) Chloride Level 107 mmol/L (98-107) 110 mmol/L (98-107) Carbon Dioxide Level 28 mmol/L (21-32) 28 mmol/L (21-32) Anion Gap 9 (6-14) 7 (6-14) Blood Urea Nitrogen 10 mg/dL (8-26) 6 mg/dL (8-26) Creatinine 0.5 mg/dL (0.7-1.3) 0.4 mg/dL (0.7-1.3) Estimated GFR (Cockcroft-Gault) 159.6 249.8 BUN/Creatinine Ratio 20 (6-20) 15 (6-20) Glucose Level 127 mg/dL (70-99) 85 mg/dL (70-99) Calcium Level 9.2 mg/dL (8.5-10.1) 8.5 mg/dL (8.5-10.1) Total Bilirubin 0.5 mg/dL (0.2-1.0) 0.4 mg/dL (0.2-1.0) Aspartate Amino Transf (AST/SGOT) 14 U/L (15-37) 13 U/L (15-37) Alanine Aminotransferase (ALT/SGPT) 13 U/L (16-63) 11 U/L (16-63) Alkaline Phosphatase 96 U/L (46-116) 81 U/L (46-116) Creatine Kinase 72 U/L (39-308) Creatine Kinase MB (Mass) 3.1 ng/mL (0.0-3.6) Creatine Kinase MB Relative Index % (0-4) Total Protein 8.1 g/dL (6.4-8.2) 6.5 g/dL (6.4-8.2) Albumin 3.4 g/dL (3.4-5.0) 2.8 g/dL (3.4-5.0) Albumin/Globulin Ratio 0.7 (1.0-1.7) 0.8 (1.0-1.7) Lipase 66 U/L (73-393) Urine Collection Type Unknown Urine Color Yellow Urine Clarity Clear Urine pH 5.5 Urine Specific [place] 1.015 Urine Protein Negative mg/dL (NEG-TRACE) Urine Glucose (UA) Negative mg/dL (NEG) Urine Ketones (Stick) 15 mg/dL (NEG) Urine Blood Negative (NEG) Urine Nitrite Negative (NEG) Urine Bilirubin Negative (NEG) Urine Urobilinogen Dipstick 0.2 mg/dL (0.2 mg/dL) Urine Leukocyte Esterase Negative (NEG) Urine RBC 0 /HPF (0-2) Urine WBC Occ /HPF (0-4) Urine Squamous Epithelial Cells Occ /LPF Urine Bacteria Few /HPF (0-FEW) Urine Hyaline Casts Few /HPF Urine Mucus Slight /LPF Laboratory Tests Test 12/08/16 17:09 12/08/16 17:36 12/08/16 18:40 12/09/16 06:50 White Blood Count 9.5 x10^3/uL (4.0-11.0) 7.7 x10^3/uL (4.0-11.0) Red Blood Count 4.82 x10^6/uL (4.30-5.70) 4.27 x10^6/uL (4.30-5.70) Hemoglobin 13.0 g/dL (13.0-17.5) 11.6 g/dL (13.0-17.5) Hematocrit 40.6 % (39.0-53.0) 35.4 % (39.0-53.0) Mean Corpuscular Volume 84 fL (79-100) 83 fL (79-100) Mean Corpuscular Hemoglobin 27 pg (25-35) 27 pg (25-35) Mean Corpuscular Hemoglobin Concent 32 g/dL (31-37) 33 g/dL (31-37) Red Cell Distribution Width 17.1 % (11.5-14.5) 16.5 % (11.5-14.5) Platelet Count 253 x10^3/uL (140-400) 209 x10^3/uL (140-400) Neutrophils (%) (Auto) 75 % (31-73) 58 % (31-73) Lymphocytes (%) (Auto) 16 % (24-48) 30 % (24-48) Monocytes (%) (Auto) 7 % (0-9) 8 % (0-9) Eosinophils (%) (Auto) 2 % (0-3) 3 % (0-3) Basophils (%) (Auto) 1 % (0-3) 1 % (0-3) Neutrophils # (Auto) 7.1 x10^3uL (1.8-7.7) 4.5 x10^3uL (1.8-7.7) Lymphocytes # (Auto) 1.5 x10^3/uL (1.0-4.8) 2.3 x10^3/uL (1.0-4.8) Monocytes # (Auto) 0.6 x10^3/uL (0.0-1.1) 0.6 x10^3/uL (0.0-1.1) Eosinophils # (Auto) 0.2 x10^3/uL (0.0-0.7) 0.2 x10^3/uL (0.0-0.7) Basophils # (Auto) 0.1 x10^3/uL (0.0-0.2) 0.1 x10^3/uL (0.0-0.2) Troponin I Quantitative < 0.017 ng/mL (0.000-0.055) Sodium Level 144 mmol/L (136-145) 145 mmol/L (136-145) Potassium Level 3.8 mmol/L (3.5-5.1) 3.3 mmol/L (3.5-5.1) Chloride Level 107 mmol/L (98-107) 110 mmol/L (98-107) Carbon Dioxide Level 28 mmol/L (21-32) 28 mmol/L (21-32) Anion Gap 9 (6-14) 7 (6-14) Blood Urea Nitrogen 10 mg/dL (8-26) 6 mg/dL (8-26) Creatinine 0.5 mg/dL (0.7-1.3) 0.4 mg/dL (0.7-1.3) Estimated GFR (Cockcroft-Gault) 159.6 249.8 BUN/Creatinine Ratio 20 (6-20) 15 (6-20) Glucose Level 127 mg/dL (70-99) 85 mg/dL (70-99) Calcium Level 9.2 mg/dL (8.5-10.1) 8.5 mg/dL (8.5-10.1) Total Bilirubin 0.5 mg/dL (0.2-1.0) 0.4 mg/dL (0.2-1.0) Aspartate Amino Transf (AST/SGOT) 14 U/L (15-37) 13 U/L (15-37) Alanine Aminotransferase (ALT/SGPT) 13 U/L (16-63) 11 U/L (16-63) Alkaline Phosphatase 96 U/L (46-116) 81 U/L (46-116) Creatine Kinase 72 U/L (39-308) Creatine Kinase MB (Mass) 3.1 ng/mL (0.0-3.6) Creatine Kinase MB Relative Index % (0-4) Total Protein 8.1 g/dL (6.4-8.2) 6.5 g/dL (6.4-8.2) Albumin 3.4 g/dL (3.4-5.0) 2.8 g/dL (3.4-5.0) Albumin/Globulin Ratio 0.7 (1.0-1.7) 0.8 (1.0-1.7) Lipase 66 U/L (73-393) Urine Collection Type Unknown Urine Color Yellow Urine Clarity Clear Urine pH 5.5 Urine Specific [place] 1.015 Urine Protein Negative mg/dL (NEG-TRACE) Urine Glucose (UA) Negative mg/dL (NEG) Urine Ketones (Stick) 15 mg/dL (NEG) Urine Blood Negative (NEG) Urine Nitrite Negative (NEG) Urine Bilirubin Negative (NEG) Urine Urobilinogen Dipstick 0.2 mg/dL (0.2 mg/dL) Urine Leukocyte Esterase Negative (NEG) Urine RBC 0 /HPF (0-2) Urine WBC Occ /HPF (0-4) Urine Squamous Epithelial Cells Occ /LPF Urine Bacteria Few /HPF (0-FEW) Urine Hyaline Casts Few /HPF Urine Mucus Slight /LPF Medications Current Medications Hydromorphone HCl (Dilaudid) 0.5 mg PRN Q15MIN PRN IV/SQ PAIN GREATER THAN 3/ 10 Last administered on 12/08/16 18:44; Start 12/08/16 at 17:15; Stop 12/09/16 at 17:14 Sodium Chloride 1,000 ml @ 1,000 mls/hr Q1H IV Last administered on 12/08/16 17:28; Start 12/08/16 at 17:09; Stop 12/08/16 at 18:08; Status DC Sodium Chloride (Normal Saline Flush) 10 ml QSHIFT PRN IV AFTER MEDS AND BLOOD DRAWS; Start 12/08/16 at 17:15 Ondansetron HCl (Zofran) 4 mg 1X ONCE IV Last administered on 12/08/16 17:28 ; Start 12/08/16 at 17:15; Stop 12/08/16 at 17:16; Status DC Famotidine (Pepcid) 20 mg 1X ONCE IVP Last administered on 12/08/16 17:28; Start 12/08/16 at 17:15; Stop 12/08/16 at 17:16; Status DC Iohexol (Omnipaque 300 Mg/ml) 75 ml 1X ONCE IV Last administered on 12/08/16 19:09; Start 12/08/16 at 18:30; Stop 12/08/16 at 18:31; Status DC Ondansetron HCl (Zofran) 4 mg PRN Q8HRS PRN IV NAUSEA/VOMITING; Start 12/08/16 at 19:45; Stop 12/09/16 at 19:44 Fentanyl Citrate (Fentanyl 2ml Vial) 50 mcg PRN Q2HR PRN IV PAIN; Start at 19:45; Stop 12/09/16 at 19:44 Sodium Chloride 1,000 ml @ 100 mls/hr Q10H IV Last administered on 12/09/16t 06:42; Start 12/08/16 at 19:35; Stop 12/09/16 at 19:34 Vitals/I & O Vital Sign - Last 24 Hours 12/08/16 12/08/16 12/08/16 12/08/16 17:00 17:29 18:05 18:35 Temp 99.4 99.4 Pulse 89 82 92 Resp 20 18 12 21 B/P (MAP) 119/66 (83) 105/69 (81) 108/73 (85) Pulse Ox 97 96 95 94 O2 Delivery Room Air Room Air Room Air Room Air 12/08/16 12/08/16 12/08/16 12/08/16 18:44 19:13 20:45 22:43 Temp 98.6 98.6 Pulse 84 92 Resp 15 16 16 B/P (MAP) 123/68 (86) 126/75 (92) Pulse Ox 93 92 O2 Delivery Room Air Room Air Room Air Room Air 12/08/16 12/09/16 12/09/16 12/09/16 23:00 03:00 07:30 08:00 Temp 98.1 97.9 97.9 98.1 97.9 97.9 Pulse 79 73 68 Resp 16 16 16 B/P (MAP) 113/64 (80) 120/69 (86) 106/60 (75) Pulse Ox 91 95 96 O2 Delivery Room Air Room Air Room Air Room Air Intake and Output 12/08/16 12/08/16 12/09/16 15:00 23:00 07:00 Intake Total 695 ml Output Total 690 ml Balance 5 ml BETTE ALANIZ III DO December 09, 2016 12:04
--- NOTE | 2016-12-09 12:10 | CONS ---
DATE OF CONSULTATION: 12/09/2016 ATTENDING PHYSICIAN: COOPER FINCH MD. HISTORY OF PRESENT ILLNESS: This is an 81-year-old right-handed male admitted through the Emergency Room on 12/08/2016 with nausea, abdominal pain and some constipation. He admits that he is feeling much better. The patient admits some chronic neck and lower back pain. He is status post two cervical spine and three lumbar spine surgeries in the past with residual quadriparesis and mobility and self-care limitation being taken care by his family, who helps him with transfer and he gets around in a wheelchair usually. The patient lives with his family. The patient has been wheelchair-bound after neck surgery in 1995. The patient also with known hypertension, congestive heart failure, chronic obstructive pulmonary disease, chronic neck and lower back pain and stiffness of his neck. The patient used to walk with left lower extremity bracing until an years ago, but he has not walked since then. The patient denies any trouble with urination. PHYSICAL EXAMINATION: Today revealed an elderly male. He is alert, oriented to time, place, person and circumstance and follows commands appropriately. He had movement in all four extremities. He had no active shoulder abduction, external rotation, elbow flexion bilaterally and no active to left foot dorsiflexion and plantar flexion. He had generalized muscle weakness, more so on the left side. He also had hand intrinsic muscle atrophy and effectively increased weakness in hand intrinsic muscles and also left hip flexors, left hip and adductors and abductors, left knee flexors, and left quadriceps when compared to right side. Deep tendon reflexes are absent at both biceps 1+ at triceps, absent at left ankle, 1+ at left knee and right knee and ankles. He had equal perception of touch and pinprick sensation bilaterally. He requires help with bed mobility and transfers. I have not tested his ambulation skills at this time. He had his neck ____ to the left side and he ____ problem going on for years. He had minimal tenderness to palpation over sacroiliac joint area and straight leg raising test is negative bilaterally. 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 RECOMMENDATIONS: Home when medically stable with home health followup. Dr. Finch, I appreciate asking me to participate in the care of this interesting patient. I will be glad to follow him with you as needed for the rehabilitation. ZULEYMA NAVA MD DR: PHOEBE/perla JOB#: [id number] / [id number]
[2016-12-09] MEDS ORDERED: POTASSIUM CHLORIDE 20 MEQ TABLET.ER. PO ONE (12:15)
[2016-12-09] MEDS ORDERED: IPRA3AMP NEB (13:24)
[2016-12-09] MEDS ORDERED: DORZ10DR3 RIGHTEYE (13:41)
[2016-12-09] MEDS ORDERED: GOSE10.8 SQ (13:41)
[2016-12-09] MEDS ORDERED: SENN-37 PO (13:41)
[2016-12-09] MEDS ORDERED: ASPI-482 PO (13:41)
[2016-12-09] MEDS ORDERED: CARB15DR3 EACHEYE (13:41)
[2016-12-09] MEDS ORDERED: CLOP75TA PO (13:41)
[2016-12-09] MEDS ORDERED: CARV12.52 PO (13:41)
[2016-12-09] MEDS ORDERED: BRIM5DRO3 EACHEYE (13:41)
[2016-12-09] MEDS ORDERED: POLY17PO29 PO (13:45)
[2016-12-09] MEDS ORDERED: MELO-156 PO (13:45)
[2016-12-09] MEDS ORDERED: HYDR-2672 PO (13:45)
[2016-12-09] MEDS ORDERED: LATA2.5D3 EACHEYE (13:45)
[2016-12-09] MEDS ORDERED: TAMS0.4C2 PO (13:45)
[2016-12-09] MEDS ORDERED: SIMV40TA3 PO (13:45)
[2016-12-09] MEDS ORDERED: LISI-334 PO (13:45)
[2016-12-09 15:00] VITALS: BP 132/68
[2016-12-09 19:00] VITALS: BP 144/76
[2016-12-09] MEDS ORDERED: ALBUTEROL SULFATE 2.5 MG/3 ML NEBU. NEB PRN (21:15)
[2016-12-09] MEDS ORDERED: HYDROcodone/APAP 10/325 1 TAB TABLET PO PRN (21:45)
[2016-12-09] MEDS: POLYVINYL ALCOHOL 1.4% OPHTH SOLUTION 15ML BOTTLE. OU SCH (21:45)
[2016-12-09] MEDS: DORZOLAMIDE 2% OPHTH SOLUTION 10ML BOTTLE. OD SCH (21:45)
[2016-12-09] MEDS: BRIMONIDINE 0.2% OPHTH SOLUTION 5ML BOTTLE. OU SCH (21:45)
[2016-12-09 23:00] VITALS: BP 139/86
[2016-12-10 03:13] VITALS: BP 135/91
[2016-12-10 06:19] LABS: BASO # 0.1 x10^3/uL (0.0-0.2); BASO % 1 % (0-3); EOS % 4 % (0-3); HEMATOCRIT 32.8 % (39.0-53.0); HEMOGLOBIN 11.1 g/dL (13.0-17.5); LYMPH % 35 % (24-48); MEAN CORPUSCULAR HEMOGLOBIN 28 pg (25-35); MEAN CORPUSCULAR HGB CONC 34 g/dL (31-37); MEAN CORPUSCULAR VOLUME 82 fL (79-100); MONO % 8 % (0-9); NEUT % 52 % (31-73); PLATELET COUNT 224 x10^3/uL (140-400); RED BLOOD COUNT 4.02 x10^6/uL (4.30-5.70); RED CELL DISTRIBUTION WIDTH 17.3 % (11.5-14.5); WHITE BLOOD COUNT 5.9 x10^3/uL (4.0-11.0)
[2016-12-10 06:38] LABS: ANION GAP 9 (6-14); BLOOD UREA NITROGEN 4 mg/dL (8-26); CALCIUM 8.4 mg/dL (8.5-10.1); CARBON DIOXIDE 25 mmol/L (21-32); CHLORIDE 111 mmol/L (98-107); CREATININE 0.2 mg/dL (0.7-1.3); GFR > 300.0; GLUCOSE 97 mg/dL (70-99); POTASSIUM 3.7 mmol/L (3.5-5.1); SODIUM 145 mmol/L (136-145)
[2016-12-10 07:00] VITALS: BP 142/87
[2016-12-10] MEDS ORDERED: CARVEDILOL 12.5 MG TABLET. PO SCH (08:00)
[2016-12-10] MEDS ORDERED: ASPIRIN ENTERIC COATED 81 MG TABLET.DR. PO SCH (09:00)
[2016-12-10] MEDS ORDERED: CLOPIDOGREL BISULFATE 75 MG TABLET PO SCH (09:00)
[2016-12-10] MEDS ORDERED: LISINOPRIL 20 MG TABLET PO SCH (09:00)
[2016-12-10] MEDS ORDERED: MELOXICAM 7.5 MG TABLET PO SCH (09:00)
[2016-12-10] MEDS ORDERED: SENNOSIDES/DOCUSATE 8.6/50MG TABLET. PO SCH (09:00)
[2016-12-10] MEDS ORDERED: POLYETHYLENE GLYCOL 3350 17 GM PACKET. PO SCH (09:00)
--- NOTE | 2016-12-10 09:28 | PDOC ---
PROGRESS NOTES Subjective Subjective No new complaints. Objective Objective Vital Signs Date Time Temp Pulse Resp B/P (MAP) Pulse Ox O2 Delivery O2 Flow Rate FiO2 12/10/16 07:00 98.2 69 20 142/87 (105) 99 Room Air 98.2 Intake and Output 12/10/16 07:00 Intake Total 2920 ml Output Total 1100 ml Balance 1820 ml Intake Oral 2920 ml Output Urine Total 1100 ml # Voids 3 Physical Exam Physical Exam He is supine in bed and continues to require significant help with bed mobility, transfers and self care.He rather wants to go home rather than going to assisted living facility or detention. Assessment Assessment Problems Medical Problems: (1) Abdominal pain Status: Acute (2) Diarrhea Status: Acute (3) Nausea & vomiting Status: Acute Plan Plan of Care Agree with plans for social service to talk to him and his daughter and help with plans. Comment Review of Relevant I have reviewed the following items wally (where applicable) has been applied. Labs Laboratory Tests Test 12/08/16 17:09 12/08/16 17:36 12/08/16 18:40 12/09/16 06:50 White Blood Count 9.5 x10^3/uL (4.0-11.0) 7.7 x10^3/uL (4.0-11.0) Red Blood Count 4.82 x10^6/uL (4.30-5.70) 4.27 x10^6/uL (4.30-5.70) Hemoglobin 13.0 g/dL (13.0-17.5) 11.6 g/dL (13.0-17.5) Hematocrit 40.6 % (39.0-53.0) 35.4 % (39.0-53.0) Mean Corpuscular Volume 84 fL (79-100) 83 fL (79-100) Mean Corpuscular Hemoglobin 27 pg (25-35) 27 pg (25-35) Mean Corpuscular Hemoglobin Concent 32 g/dL (31-37) 33 g/dL (31-37) Red Cell Distribution Width 17.1 % (11.5-14.5) 16.5 % (11.5-14.5) Platelet Count 253 x10^3/uL (140-400) 209 x10^3/uL (140-400) Neutrophils (%) (Auto) 75 % (31-73) 58 % (31-73) Lymphocytes (%) (Auto) 16 % (24-48) 30 % (24-48) Monocytes (%) (Auto) 7 % (0-9) 8 % (0-9) Eosinophils (%) (Auto) 2 % (0-3) 3 % (0-3) Basophils (%) (Auto) 1 % (0-3) 1 % (0-3) Neutrophils # (Auto) 7.1 x10^3uL (1.8-7.7) 4.5 x10^3uL (1.8-7.7) Lymphocytes # (Auto) 1.5 x10^3/uL (1.0-4.8) 2.3 x10^3/uL (1.0-4.8) Monocytes # (Auto) 0.6 x10^3/uL (0.0-1.1) 0.6 x10^3/uL (0.0-1.1) Eosinophils # (Auto) 0.2 x10^3/uL (0.0-0.7) 0.2 x10^3/uL (0.0-0.7) Basophils # (Auto) 0.1 x10^3/uL (0.0-0.2) 0.1 x10^3/uL (0.0-0.2) Troponin I Quantitative < 0.017 ng/mL (0.000-0.055) Sodium Level 144 mmol/L (136-145) 145 mmol/L (136-145) Potassium Level 3.8 mmol/L (3.5-5.1) 3.3 mmol/L (3.5-5.1) Chloride Level 107 mmol/L (98-107) 110 mmol/L (98-107) Carbon Dioxide Level 28 mmol/L (21-32) 28 mmol/L (21-32) Anion Gap 9 (6-14) 7 (6-14) Blood Urea Nitrogen 10 mg/dL (8-26) 6 mg/dL (8-26) Creatinine 0.5 mg/dL (0.7-1.3) 0.4 mg/dL (0.7-1.3) Estimated GFR (Cockcroft-Gault) 159.6 249.8 BUN/Creatinine Ratio 20 (6-20) 15 (6-20) Glucose Level 127 mg/dL (70-99) 85 mg/dL (70-99) Calcium Level 9.2 mg/dL (8.5-10.1) 8.5 mg/dL (8.5-10.1) Total Bilirubin 0.5 mg/dL (0.2-1.0) 0.4 mg/dL (0.2-1.0) Aspartate Amino Transf (AST/SGOT) 14 U/L (15-37) 13 U/L (15-37) Alanine Aminotransferase (ALT/SGPT) 13 U/L (16-63) 11 U/L (16-63) Alkaline Phosphatase 96 U/L (46-116) 81 U/L (46-116) Creatine Kinase 72 U/L (39-308) Creatine Kinase MB (Mass) 3.1 ng/mL (0.0-3.6) Creatine Kinase MB Relative Index % (0-4) Total Protein 8.1 g/dL (6.4-8.2) 6.5 g/dL (6.4-8.2) Albumin 3.4 g/dL (3.4-5.0) 2.8 g/dL (3.4-5.0) Albumin/Globulin Ratio 0.7 (1.0-1.7) 0.8 (1.0-1.7) Lipase 66 U/L (73-393) Urine Collection Type Unknown Urine Color Yellow Urine Clarity Clear Urine pH 5.5 Urine Specific [place] 1.015 Urine Protein Negative mg/dL (NEG-TRACE) Urine Glucose (UA) Negative mg/dL (NEG) Urine Ketones (Stick) 15 mg/dL (NEG) Urine Blood Negative (NEG) Urine Nitrite Negative (NEG) Urine Bilirubin Negative (NEG) Urine Urobilinogen Dipstick 0.2 mg/dL (0.2 mg/dL) Urine Leukocyte Esterase Negative (NEG) Urine RBC 0 /HPF (0-2) Urine WBC Occ /HPF (0-4) Urine Squamous Epithelial Cells Occ /LPF Urine Bacteria Few /HPF (0-FEW) Urine Hyaline Casts Few /HPF Urine Mucus Slight /LPF Test 12/10/16 05:40 12/10/16 05:55 Sodium Level 145 mmol/L (136-145) Potassium Level 3.7 mmol/L (3.5-5.1) Chloride Level 111 mmol/L (98-107) Carbon Dioxide Level 25 mmol/L (21-32) Anion Gap 9 (6-14) Blood Urea Nitrogen 4 mg/dL (8-26) Creatinine 0.2 mg/dL (0.7-1.3) Estimated GFR (Cockcroft-Gault) > 300.0 Glucose Level 97 mg/dL (70-99) Calcium Level 8.4 mg/dL (8.5-10.1) White Blood Count 5.9 x10^3/uL (4.0-11.0) Red Blood Count 4.02 x10^6/uL (4.30-5.70) Hemoglobin 11.1 g/dL (13.0-17.5) Hematocrit 32.8 % (39.0-53.0) Mean Corpuscular Volume 82 fL (79-100) Mean Corpuscular Hemoglobin 28 pg (25-35) Mean Corpuscular Hemoglobin Concent 34 g/dL (31-37) Red Cell Distribution Width 17.3 % (11.5-14.5) Platelet Count 224 x10^3/uL (140-400) Neutrophils (%) (Auto) 52 % (31-73) Lymphocytes (%) (Auto) 35 % (24-48) Monocytes (%) (Auto) 8 % (0-9) Eosinophils (%) (Auto) 4 % (0-3) Basophils (%) (Auto) 1 % (0-3) Neutrophils # (Auto) 3.0 x10^3uL (1.8-7.7) Lymphocytes # (Auto) 2.0 x10^3/uL (1.0-4.8) Monocytes # (Auto) 0.5 x10^3/uL (0.0-1.1) Eosinophils # (Auto) 0.3 x10^3/uL (0.0-0.7) Basophils # (Auto) 0.1 x10^3/uL (0.0-0.2) Laboratory Tests Test 12/10/16 05:40 12/10/16 05:55 Sodium Level 145 mmol/L (136-145) Potassium Level 3.7 mmol/L (3.5-5.1) Chloride Level 111 mmol/L (98-107) Carbon Dioxide Level 25 mmol/L (21-32) Anion Gap 9 (6-14) Blood Urea Nitrogen 4 mg/dL (8-26) Creatinine 0.2 mg/dL (0.7-1.3) Estimated GFR (Cockcroft-Gault) > 300.0 Glucose Level 97 mg/dL (70-99) Calcium Level 8.4 mg/dL (8.5-10.1) White Blood Count 5.9 x10^3/uL (4.0-11.0) Red Blood Count 4.02 x10^6/uL (4.30-5.70) Hemoglobin 11.1 g/dL (13.0-17.5) Hematocrit 32.8 % (39.0-53.0) Mean Corpuscular Volume 82 fL (79-100) Mean Corpuscular Hemoglobin 28 pg (25-35) Mean Corpuscular Hemoglobin Concent 34 g/dL (31-37) Red Cell Distribution Width 17.3 % (11.5-14.5) Platelet Count 224 x10^3/uL (140-400) Neutrophils (%) (Auto) 52 % (31-73) Lymphocytes (%) (Auto) 35 % (24-48) Monocytes (%) (Auto) 8 % (0-9) Eosinophils (%) (Auto) 4 % (0-3) Basophils (%) (Auto) 1 % (0-3) Neutrophils # (Auto) 3.0 x10^3uL (1.8-7.7) Lymphocytes # (Auto) 2.0 x10^3/uL (1.0-4.8) Monocytes # (Auto) 0.5 x10^3/uL (0.0-1.1) Eosinophils # (Auto) 0.3 x10^3/uL (0.0-0.7) Basophils # (Auto) 0.1 x10^3/uL (0.0-0.2) Medications Current Medications Hydromorphone HCl (Dilaudid) 0.5 mg PRN Q15MIN PRN IV/SQ PAIN GREATER THAN 3/ 10 Last administered on 12/08/16t 18:44; Start 12/08/16 at 17:15; Stop 12/09/16 at 17:14; Status DC Sodium Chloride 1,000 ml @ 1,000 mls/hr Q1H IV Last administered on 12/08/16 17:28; Start 12/08/16 at 17:09; Stop 12/08/16 at 18:08; Status DC Sodium Chloride (Normal Saline Flush) 10 ml QSHIFT PRN IV AFTER MEDS AND BLOOD DRAWS; Start 12/08/16 at 17:15 Ondansetron HCl (Zofran) 4 mg 1X ONCE IV Last administered on 12/08/16 17:28 ; Start 12/08/16 at 17:15; Stop 12/08/16 at 17:16; Status DC Famotidine (Pepcid) 20 mg 1X ONCE IVP Last administered on 12/08/16 17:28; Start 12/08/16 at 17:15; Stop 12/08/16 at 17:16; Status DC Iohexol (Omnipaque 300 Mg/ml) 75 ml 1X ONCE IV Last administered on 12/08/16 19:09; Start 12/08/16 at 18:30; Stop 12/08/16 at 18:31; Status DC Ondansetron HCl (Zofran) 4 mg PRN Q8HRS PRN IV NAUSEA/VOMITING; Start 12/08/16 at 19:45; Stop 12/09/16 at 19:44; Status DC Fentanyl Citrate (Fentanyl 2ml Vial) 50 mcg PRN Q2HR PRN IV PAIN; Start at 19:45; Stop 12/09/16 at 19:44; Status DC Sodium Chloride 1,000 ml @ 100 mls/hr Q10H IV Last administered on 12/09/16 16:19; Start 12/08/16 at 19:35; Stop 12/09/16 at 19:34; Status DC Potassium Chloride (Klor-Con) 40 meq 1X ONCE PO Last administered on 12:45; Start 12/09/16 at 12:15; Stop 12/09/16 at 12:16; Status DC Dorzolamide HCl (Trusopt) 1 drop BID OD Last administered on 12/09/16 21:45; Start 12/09/16 at 22:00 Albuterol Sulfate (Ventolin Neb Soln) 2.5 mg PRN QID PRN NEB SHORTNESS OF BREATH Last administered on 12/09/16 23:09; Start 12/09/16 at 21:15 Latanoprost (Xalatan) 1 drop QHS OU ; Start 12/10/16 at 22:00 Brimonidine Tartrate (Alphagan) 1 drop BID OU Last administered on 12/09/16 21 :45; Start 12/09/16 at 22:00 Artificial Tears (Artificial Tears) 1 drop QID OU Last administered on 21:45; Start 12/09/16 at 22:00 Aspirin (Ecotrin) 81 mg DAILY PO ; Start 12/10/16 at 09:00 Carvedilol (Coreg) 6.25 mg BIDWMEALS PO ; Start 12/10/16 at 08:00 Clopidogrel Bisulfate (Plavix) 75 mg DAILY PO ; Start 12/10/16 at 09:00 Acetaminophen/ Hydrocodone Bitart (Lortab 10/325) 1 tab PRN BID PRN PO PAIN Last administered on 12/10/16 04:21; Start 12/09/16 at 21:45 Lisinopril (Prinivil) 10 mg DAILY PO ; Start 12/10/16 at 09:00 Meloxicam (Mobic) 7.5 mg DAILY PO ; Start 12/10/16 at 09:00 Polyethylene Glycol (miraLAX PACKET) 17 gm DAILY PO ; Start 12/10/16 at 09:00 Senna/Docusate Sodium (Senna Plus) 2 tab BID PO ; Start 12/10/16 at 09:00 Simvastatin (Zocor) 20 mg QHS PO ; Start 12/10/16 at 21:00 Tamsulosin HCl (Flomax) 0.4 mg DAILYWSUP PO ; Start 12/10/16 at 17:00 Active Scripts Active Reported Tamsulosin Hcl 0.4 Mg Cap.er.24h 1 Cap PO DAILYWSUP Simvastatin 40 Mg Tablet 0.5 Tab PO QHS Miralax (Polyethylene Glycol 3350) 17 Gm Powd.pack 1 Packet PO DAILY Meloxicam 7.5 Mg Tablet 1 Tab PO DAILY Lisinopril 20 Mg Tablet 0.5 Tab PO DAILY Latanoprost 2.5 Ml Drops 1 Drop EACHEYE QHS Hydrocodone-Apap 10-325 (Hydrocodone Bit/Acetaminophen) 1 Each Tablet 1 Tab PO PRN BID PRN Zoladex (Goserelin Acetate) 10.8 Mg Implant 10.8 Mg SQ Dorzolamide Hcl 10 Ml Drops 1 Drop RIGHTEYE BID Senokot-S Tablet (Sennosides/Docusate Sodium) 1 Each Tablet 2 Tab PO BID Clopidogrel (Clopidogrel Bisulfate) 75 Mg Tablet 1 Tab PO DAILY Carvedilol 12.5 Mg Tablet 0.5 Tab PO BID Refresh Optive Eye Drops (Carboxymethylcellulos/Glycerin) 15 Ml Drops 1 Drop EACHEYE QID Alphagan P (Brimonidine Tartrate) 5 Ml Drops 1 Drop EACHEYE BID Aspir 81 (Aspirin) 81 Mg Tablet.dr 1 Tab PO DAILY Duoneb 0.5-3(2.5) Mg/3 Ml (Albuterol/Ipratropium) 3 Ml Ampul.neb 3 Ml NEB QID PRN Vitals/I & O Vital Sign - Last 24 Hours 12/09/16 12/09/16 12/09/16 12/09/16 11:00 12:48 15:00 19:00 Temp 97.9 98.1 97.1 97.9 98.1 97.1 Pulse 75 78 76 Resp 19 19 20 B/P (MAP) 127/65 (85) 132/68 (89) 144/76 (98) Pulse Ox 98 96 97 97 O2 Delivery Room Air Room Air Room Air Room Air 12/09/16 12/09/16 12/09/16 12/10/16 19:15 23:00 23:09 03:13 Temp 97.8 97.9 97.8 97.9 Pulse 66 69 Resp 20 20 B/P (MAP) 139/86 (103) 135/91 (106) Pulse Ox 97 98 97 O2 Delivery Room Air Room Air Room Air Room Air 12/10/16 12/10/16 12/10/16 04:21 05:20 07:00 Temp 98.2 98.2 Pulse 69 Resp 18 18 20 B/P (MAP) 142/87 (105) Pulse Ox 97 97 99 O2 Delivery Room Air Room Air Room Air Intake and Output 12/09/16 12/09/16 12/10/16 15:00 23:00 07:00 Intake Total 1100 ml 1700 ml 120 ml Output Total 1100 ml Balance 1100 ml 600 ml 120 ml ZULEYMA NAVA MD December 10, 2016 09:28
[2016-12-10] MEDS: DORZOLAMIDE 2% OPHTH SOLUTION 10ML BOTTLE. OD SCH (10:07)
[2016-12-10] MEDS: POLYVINYL ALCOHOL 1.4% OPHTH SOLUTION 15ML BOTTLE. OU SCH ×2 (10:07→11:50)
[2016-12-10] MEDS: BRIMONIDINE 0.2% OPHTH SOLUTION 5ML BOTTLE. OU SCH (10:07)
--- NOTE | 2016-12-10 10:52 | PDOC ---
Subjective: Subjective: No n/v, abd pain, diarrhea. Tolerating clears, would like more to eat. Objective: Vital Signs: Vital Signs Date Time Temp Pulse Resp B/P (MAP) Pulse Ox O2 Delivery O2 Flow Rate FiO2 12/10/16 10:05 69 142/87 12/10/16 07:00 98.2 20 99 Room Air 98.2 Labs: Laboratory Tests Test 12/10/16 05:40 12/10/16 05:55 Sodium Level 145 mmol/L Potassium Level 3.7 mmol/L Chloride Level 111 mmol/L Carbon Dioxide Level 25 mmol/L Anion Gap 9 Blood Urea Nitrogen 4 mg/dL Creatinine 0.2 mg/dL Estimated GFR (Cockcroft-Gault) > 300.0 Glucose Level 97 mg/dL Calcium Level 8.4 mg/dL White Blood Count 5.9 x10^3/uL Red Blood Count 4.02 x10^6/uL Hemoglobin 11.1 g/dL Hematocrit 32.8 % Mean Corpuscular Volume 82 fL Mean Corpuscular Hemoglobin 28 pg Mean Corpuscular Hemoglobin Concent 34 g/dL Red Cell Distribution Width 17.3 % Platelet Count 224 x10^3/uL Neutrophils (%) (Auto) 52 % Lymphocytes (%) (Auto) 35 % Monocytes (%) (Auto) 8 % Eosinophils (%) (Auto) 4 % Basophils (%) (Auto) 1 % Neutrophils # (Auto) 3.0 x10^3uL Lymphocytes # (Auto) 2.0 x10^3/uL Monocytes # (Auto) 0.5 x10^3/uL Eosinophils # (Auto) 0.3 x10^3/uL Basophils # (Auto) 0.1 x10^3/uL PE: GEN: NAD LUNGS: CTAB HEART: RRR ABD: NABS, S/ND/NT NEURO/PSYCH: A & O 3 A/P: Vomiting, abd pain, diarrhea - resolved -- Likely gastroenteritis, improved. Advance diet. NEGRITO GARCIA December 10, 2016 10:52
--- NOTE | 2016-12-10 10:55 | PDOC ---
PROGRESS NOTES Chief Complaint Chief Complaint 1. Abdominal pain- N/V 2. CHF 3. HTN 4. COPD 5. Low back pain, Swelling, Stiffness History of Present Illness History of Present Illness Patient seen this am in NAD. Patient denies nausea/vomiting. Patient wants to go home. Discussed with nurse about involving senior case manager for possible D/C if specialities agree. Vitals Vitals Vital Signs Date Time Temp Pulse Resp B/P (MAP) Pulse Ox O2 Delivery O2 Flow Rate FiO2 12/10/16 10:05 69 142/87 12/10/16 07:00 98.2 20 99 Room Air 98.2 Physical Exam General: Alert, Oriented X3, Cooperative, No acute distress Heart: Regular rate, Normal S1, Normal S2 Lungs: Clear Abdomen: No hepatosplenomegaly, No masses Extremities: No clubbing, No edema, Other (muscle wasting of hands and feet) Skin: No rashes, No breakdown, No significant lesion Labs LABS Laboratory Tests Test 12/10/16 05:40 12/10/16 05:55 Sodium Level 145 mmol/L (136-145) Potassium Level 3.7 mmol/L (3.5-5.1) Chloride Level 111 mmol/L (98-107) Carbon Dioxide Level 25 mmol/L (21-32) Anion Gap 9 (6-14) Blood Urea Nitrogen 4 mg/dL (8-26) Creatinine 0.2 mg/dL (0.7-1.3) Estimated GFR (Cockcroft-Gault) > 300.0 Glucose Level 97 mg/dL (70-99) Calcium Level 8.4 mg/dL (8.5-10.1) White Blood Count 5.9 x10^3/uL (4.0-11.0) Red Blood Count 4.02 x10^6/uL (4.30-5.70) Hemoglobin 11.1 g/dL (13.0-17.5) Hematocrit 32.8 % (39.0-53.0) Mean Corpuscular Volume 82 fL (79-100) Mean Corpuscular Hemoglobin 28 pg (25-35) Mean Corpuscular Hemoglobin Concent 34 g/dL (31-37) Red Cell Distribution Width 17.3 % (11.5-14.5) Platelet Count 224 x10^3/uL (140-400) Neutrophils (%) (Auto) 52 % (31-73) Lymphocytes (%) (Auto) 35 % (24-48) Monocytes (%) (Auto) 8 % (0-9) Eosinophils (%) (Auto) 4 % (0-3) Basophils (%) (Auto) 1 % (0-3) Neutrophils # (Auto) 3.0 x10^3uL (1.8-7.7) Lymphocytes # (Auto) 2.0 x10^3/uL (1.0-4.8) Monocytes # (Auto) 0.5 x10^3/uL (0.0-1.1) Eosinophils # (Auto) 0.3 x10^3/uL (0.0-0.7) Basophils # (Auto) 0.1 x10^3/uL (0.0-0.2) Review of Systems Review of Systems No nausea/vomiting No fevers No rashes No JVD No SOB Assessment and Plan Assessmemt and Plan Problems Medical Problems: (1) Abdominal pain Status: Acute (2) Diarrhea Status: Acute (3) Nausea & vomiting Status: Acute 4. CHF 5. HTN 6. COPD 7. Low back pain, Swelling, Stiffness Plan: -Continue current medications and adjust accordingly as needed. -Continue specialty consultation. -Continue PT/OT. -Possible D/C if specialties agree. -If specialities don't D/C, continue daily blood draws to monitor previous low potassium. -Continue diet as tolerated, since patient denies nausea/vomiting. Problems: Comment Review of Relevant I have reviewed the following items wally (where applicable) has been applied. Labs Laboratory Tests Test 12/08/16 17:09 12/08/16 17:36 12/08/16 18:40 12/09/16 06:50 White Blood Count 9.5 x10^3/uL (4.0-11.0) 7.7 x10^3/uL (4.0-11.0) Red Blood Count 4.82 x10^6/uL (4.30-5.70) 4.27 x10^6/uL (4.30-5.70) Hemoglobin 13.0 g/dL (13.0-17.5) 11.6 g/dL (13.0-17.5) Hematocrit 40.6 % (39.0-53.0) 35.4 % (39.0-53.0) Mean Corpuscular Volume 84 fL (79-100) 83 fL (79-100) Mean Corpuscular Hemoglobin 27 pg (25-35) 27 pg (25-35) Mean Corpuscular Hemoglobin Concent 32 g/dL (31-37) 33 g/dL (31-37) Red Cell Distribution Width 17.1 % (11.5-14.5) 16.5 % (11.5-14.5) Platelet Count 253 x10^3/uL (140-400) 209 x10^3/uL (140-400) Neutrophils (%) (Auto) 75 % (31-73) 58 % (31-73) Lymphocytes (%) (Auto) 16 % (24-48) 30 % (24-48) Monocytes (%) (Auto) 7 % (0-9) 8 % (0-9) Eosinophils (%) (Auto) 2 % (0-3) 3 % (0-3) Basophils (%) (Auto) 1 % (0-3) 1 % (0-3) Neutrophils # (Auto) 7.1 x10^3uL (1.8-7.7) 4.5 x10^3uL (1.8-7.7) Lymphocytes # (Auto) 1.5 x10^3/uL (1.0-4.8) 2.3 x10^3/uL (1.0-4.8) Monocytes # (Auto) 0.6 x10^3/uL (0.0-1.1) 0.6 x10^3/uL (0.0-1.1) Eosinophils # (Auto) 0.2 x10^3/uL (0.0-0.7) 0.2 x10^3/uL (0.0-0.7) Basophils # (Auto) 0.1 x10^3/uL (0.0-0.2) 0.1 x10^3/uL (0.0-0.2) Troponin I Quantitative < 0.017 ng/mL (0.000-0.055) Sodium Level 144 mmol/L (136-145) 145 mmol/L (136-145) Potassium Level 3.8 mmol/L (3.5-5.1) 3.3 mmol/L (3.5-5.1) Chloride Level 107 mmol/L (98-107) 110 mmol/L (98-107) Carbon Dioxide Level 28 mmol/L (21-32) 28 mmol/L (21-32) Anion Gap 9 (6-14) 7 (6-14) Blood Urea Nitrogen 10 mg/dL (8-26) 6 mg/dL (8-26) Creatinine 0.5 mg/dL (0.7-1.3) 0.4 mg/dL (0.7-1.3) Estimated GFR (Cockcroft-Gault) 159.6 249.8 BUN/Creatinine Ratio 20 (6-20) 15 (6-20) Glucose Level 127 mg/dL (70-99) 85 mg/dL (70-99) Calcium Level 9.2 mg/dL (8.5-10.1) 8.5 mg/dL (8.5-10.1) Total Bilirubin 0.5 mg/dL (0.2-1.0) 0.4 mg/dL (0.2-1.0) Aspartate Amino Transf (AST/SGOT) 14 U/L (15-37) 13 U/L (15-37) Alanine Aminotransferase (ALT/SGPT) 13 U/L (16-63) 11 U/L (16-63) Alkaline Phosphatase 96 U/L (46-116) 81 U/L (46-116) Creatine Kinase 72 U/L (39-308) Creatine Kinase MB (Mass) 3.1 ng/mL (0.0-3.6) Creatine Kinase MB Relative Index % (0-4) Total Protein 8.1 g/dL (6.4-8.2) 6.5 g/dL (6.4-8.2) Albumin 3.4 g/dL (3.4-5.0) 2.8 g/dL (3.4-5.0) Albumin/Globulin Ratio 0.7 (1.0-1.7) 0.8 (1.0-1.7) Lipase 66 U/L (73-393) Urine Collection Type Unknown Urine Color Yellow Urine Clarity Clear Urine pH 5.5 Urine Specific [place] 1.015 Urine Protein Negative mg/dL (NEG-TRACE) Urine Glucose (UA) Negative mg/dL (NEG) Urine Ketones (Stick) 15 mg/dL (NEG) Urine Blood Negative (NEG) Urine Nitrite Negative (NEG) Urine Bilirubin Negative (NEG) Urine Urobilinogen Dipstick 0.2 mg/dL (0.2 mg/dL) Urine Leukocyte Esterase Negative (NEG) Urine RBC 0 /HPF (0-2) Urine WBC Occ /HPF (0-4) Urine Squamous Epithelial Cells Occ /LPF Urine Bacteria Few /HPF (0-FEW) Urine Hyaline Casts Few /HPF Urine Mucus Slight /LPF Test 12/10/16 05:40 12/10/16 05:55 Sodium Level 145 mmol/L (136-145) Potassium Level 3.7 mmol/L (3.5-5.1) Chloride Level 111 mmol/L (98-107) Carbon Dioxide Level 25 mmol/L (21-32) Anion Gap 9 (6-14) Blood Urea Nitrogen 4 mg/dL (8-26) Creatinine 0.2 mg/dL (0.7-1.3) Estimated GFR (Cockcroft-Gault) > 300.0 Glucose Level 97 mg/dL (70-99) Calcium Level 8.4 mg/dL (8.5-10.1) White Blood Count 5.9 x10^3/uL (4.0-11.0) Red Blood Count 4.02 x10^6/uL (4.30-5.70) Hemoglobin 11.1 g/dL (13.0-17.5) Hematocrit 32.8 % (39.0-53.0) Mean Corpuscular Volume 82 fL (79-100) Mean Corpuscular Hemoglobin 28 pg (25-35) Mean Corpuscular Hemoglobin Concent 34 g/dL (31-37) Red Cell Distribution Width 17.3 % (11.5-14.5) Platelet Count 224 x10^3/uL (140-400) Neutrophils (%) (Auto) 52 % (31-73) Lymphocytes (%) (Auto) 35 % (24-48) Monocytes (%) (Auto) 8 % (0-9) Eosinophils (%) (Auto) 4 % (0-3) Basophils (%) (Auto) 1 % (0-3) Neutrophils # (Auto) 3.0 x10^3uL (1.8-7.7) Lymphocytes # (Auto) 2.0 x10^3/uL (1.0-4.8) Monocytes # (Auto) 0.5 x10^3/uL (0.0-1.1) Eosinophils # (Auto) 0.3 x10^3/uL (0.0-0.7) Basophils # (Auto) 0.1 x10^3/uL (0.0-0.2) Laboratory Tests Test 12/10/16 05:40 12/10/16 05:55 Sodium Level 145 mmol/L (136-145) Potassium Level 3.7 mmol/L (3.5-5.1) Chloride Level 111 mmol/L (98-107) Carbon Dioxide Level 25 mmol/L (21-32) Anion Gap 9 (6-14) Blood Urea Nitrogen 4 mg/dL (8-26) Creatinine 0.2 mg/dL (0.7-1.3) Estimated GFR (Cockcroft-Gault) > 300.0 Glucose Level 97 mg/dL (70-99) Calcium Level 8.4 mg/dL (8.5-10.1) White Blood Count 5.9 x10^3/uL (4.0-11.0) Red Blood Count 4.02 x10^6/uL (4.30-5.70) Hemoglobin 11.1 g/dL (13.0-17.5) Hematocrit 32.8 % (39.0-53.0) Mean Corpuscular Volume 82 fL (79-100) Mean Corpuscular Hemoglobin 28 pg (25-35) Mean Corpuscular Hemoglobin Concent 34 g/dL (31-37) Red Cell Distribution Width 17.3 % (11.5-14.5) Platelet Count 224 x10^3/uL (140-400) Neutrophils (%) (Auto) 52 % (31-73) Lymphocytes (%) (Auto) 35 % (24-48) Monocytes (%) (Auto) 8 % (0-9) Eosinophils (%) (Auto) 4 % (0-3) Basophils (%) (Auto) 1 % (0-3) Neutrophils # (Auto) 3.0 x10^3uL (1.8-7.7) Lymphocytes # (Auto) 2.0 x10^3/uL (1.0-4.8) Monocytes # (Auto) 0.5 x10^3/uL (0.0-1.1) Eosinophils # (Auto) 0.3 x10^3/uL (0.0-0.7) Basophils # (Auto) 0.1 x10^3/uL (0.0-0.2) Medications Current Medications Hydromorphone HCl (Dilaudid) 0.5 mg PRN Q15MIN PRN IV/SQ PAIN GREATER THAN 3/ 10 Last administered on 12/08/16 18:44; Start 12/08/16 at 17:15; Stop 12/09/16 at 17:14; Status DC Sodium Chloride 1,000 ml @ 1,000 mls/hr Q1H IV Last administered on 12/08/16 17:28; Start 12/08/16 at 17:09; Stop 12/08/16 at 18:08; Status DC Sodium Chloride (Normal Saline Flush) 10 ml QSHIFT PRN IV AFTER MEDS AND BLOOD DRAWS; Start 12/08/16 at 17:15 Ondansetron HCl (Zofran) 4 mg 1X ONCE IV Last administered on 12/08/16 17:28 ; Start 12/08/16 at 17:15; Stop 12/08/16 at 17:16; Status DC Famotidine (Pepcid) 20 mg 1X ONCE IVP Last administered on 12/08/16 17:28; Start 12/08/16 at 17:15; Stop 12/08/16 at 17:16; Status DC Iohexol (Omnipaque 300 Mg/ml) 75 ml 1X ONCE IV Last administered on 12/08/16 19:09; Start 12/08/16 at 18:30; Stop 12/08/16 at 18:31; Status DC Ondansetron HCl (Zofran) 4 mg PRN Q8HRS PRN IV NAUSEA/VOMITING; Start 12/08/16 at 19:45; Stop 12/09/16 at 19:44; Status DC Fentanyl Citrate (Fentanyl 2ml Vial) 50 mcg PRN Q2HR PRN IV PAIN; Start at 19:45; Stop 12/09/16 at 19:44; Status DC Sodium Chloride 1,000 ml @ 100 mls/hr Q10H IV Last administered on 12/09/16 16:19; Start 12/08/16 at 19:35; Stop 12/09/16 at 19:34; Status DC Potassium Chloride (Klor-Con) 40 meq 1X ONCE PO Last administered on 12:45; Start 12/09/16 at 12:15; Stop 12/09/16 at 12:16; Status DC Dorzolamide HCl (Trusopt) 1 drop BID OD Last administered on 12/10/16 10:07; Start 12/09/16 at 22:00 Albuterol Sulfate (Ventolin Neb Soln) 2.5 mg PRN QID PRN NEB SHORTNESS OF BREATH Last administered on 12/09/16 23:09; Start 12/09/16 at 21:15 Latanoprost (Xalatan) 1 drop QHS OU ; Start 12/10/16 at 22:00 Brimonidine Tartrate (Alphagan) 1 drop BID OU Last administered on 12/10/16 10 :07; Start 12/09/16 at 22:00 Artificial Tears (Artificial Tears) 1 drop QID OU Last administered on 10:07; Start 12/09/16 at 22:00 Aspirin (Ecotrin) 81 mg DAILY PO Last administered on 12/10/16 09:59; Start at 09:00 Carvedilol (Coreg) 6.25 mg BIDWMEALS PO Last administered on 12/10/16 10:05; Start 12/10/16 at 08:00 Clopidogrel Bisulfate (Plavix) 75 mg DAILY PO Last administered on 12/10/16 10 :00; Start 12/10/16 at 09:00 Acetaminophen/ Hydrocodone Bitart (Lortab 10/325) 1 tab PRN BID PRN PO PAIN Last administered on 12/10/16 04:21; Start 12/09/16 at 21:45 Lisinopril (Prinivil) 10 mg DAILY PO Last administered on 12/10/16 10:01; Start 12/10/16 at 09:00 Meloxicam (Mobic) 7.5 mg DAILY PO Last administered on 12/10/16 09:59; Start 12/10/16 at 09:00 Polyethylene Glycol (miraLAX PACKET) 17 gm DAILY PO ; Start 12/10/16 at 09:00 Senna/Docusate Sodium (Senna Plus) 2 tab BID PO Last administered on 12/10/16t 09:59; Start 12/10/16 at 09:00 Simvastatin (Zocor) 20 mg QHS PO ; Start 12/10/16 at 21:00 Tamsulosin HCl (Flomax) 0.4 mg DAILYWSUP PO ; Start 12/10/16 at 17:00 Active Scripts Active Reported Tamsulosin Hcl 0.4 Mg Cap.er.24h 1 Cap PO DAILYWSUP Simvastatin 40 Mg Tablet 0.5 Tab PO QHS Miralax (Polyethylene Glycol 3350) 17 Gm Powd.pack 1 Packet PO DAILY Meloxicam 7.5 Mg Tablet 1 Tab PO DAILY Lisinopril 20 Mg Tablet 0.5 Tab PO DAILY Latanoprost 2.5 Ml Drops 1 Drop EACHEYE QHS Hydrocodone-Apap 10-325 (Hydrocodone Bit/Acetaminophen) 1 Each Tablet 1 Tab PO PRN BID PRN Zoladex (Goserelin Acetate) 10.8 Mg Implant 10.8 Mg SQ Dorzolamide Hcl 10 Ml Drops 1 Drop RIGHTEYE BID Senokot-S Tablet (Sennosides/Docusate Sodium) 1 Each Tablet 2 Tab PO BID Clopidogrel (Clopidogrel Bisulfate) 75 Mg Tablet 1 Tab PO DAILY Carvedilol 12.5 Mg Tablet 0.5 Tab PO BID Refresh Optive Eye Drops (Carboxymethylcellulos/Glycerin) 15 Ml Drops 1 Drop EACHEYE QID Alphagan P (Brimonidine Tartrate) 5 Ml Drops 1 Drop EACHEYE BID Aspir 81 (Aspirin) 81 Mg Tablet. 1 Tab PO DAILY Duoneb 0.5-3(2.5) Mg/3 Ml (Albuterol/Ipratropium) 3 Ml Ampul.neb 3 Ml NEB QID PRN Vitals/I & O Vital Sign - Last 24 Hours 12/09/16 12/09/16 12/09/16 12/09/16 11:00 12:48 15:00 19:00 Temp 97.9 98.1 97.1 97.9 98.1 97.1 Pulse 75 78 76 Resp 19 19 20 B/P (MAP) 127/65 (85) 132/68 (89) 144/76 (98) Pulse Ox 98 96 97 97 O2 Delivery Room Air Room Air Room Air Room Air 12/09/16 12/09/16 12/09/16 12/10/16 19:15 23:00 23:09 03:13 Temp 97.8 97.9 97.8 97.9 Pulse 66 69 Resp 20 20 B/P (MAP) 139/86 (103) 135/91 (106) Pulse Ox 97 98 97 O2 Delivery Room Air Room Air Room Air Room Air 12/10/16 12/10/16 12/10/16 12/10/16 04:21 05:20 07:00 10:01 Temp 98.2 98.2 Pulse 69 69 Resp 18 18 20 B/P (MAP) 142/87 (105) 142/87 Pulse Ox 97 97 99 O2 Delivery Room Air Room Air Room Air 12/10/16 10:05 Pulse 69 B/P (MAP) 142/87 Intake and Output 12/09/16 12/09/16 12/10/16 15:00 23:00 07:00 Intake Total 1100 ml 1700 ml 120 ml Output Total 1100 ml Balance 1100 ml 600 ml 120 ml BETTE ALANIZ III DO December 10, 2016 10:55
[2016-12-10 11:00] VITALS: BP 131/80
[2016-12-10] MEDS ORDERED: TAMSULOSIN 0.4 MG CAP.ER.24H. PO SCH (17:00)
[2016-12-10] MEDS ORDERED: SIMVASTATIN 20 MG TABLET PO SCH (21:00)
[2016-12-10] MEDS ORDERED: LATANOPROST 0.005% OPHTH SOLUTION 2.5ML BOTTLE. OU SCH (22:00)
== END 2016-12-10 17:55 | disposition home health service (06) | DRG 391 ==
LOC: ER 18:40 → 5 NORTH 19:40
PROVIDERS: ADMIT Internal Medicine; ATTEND Internal Medicine
DX: A08.4 Viral intestinal infection, unspecified (principal); G82.50 Quadriplegia, unspecified; R65.10 Systemic inflammatory response syndrome (SIRS) of non-infectious origin without acute organ dysfunction; E78.00 Pure hypercholesterolemia, unspecified; E86.0 Dehydration; F43.10 Post-traumatic stress disorder, unspecified; G89.29 Other chronic pain; I11.0 Hypertensive heart disease with heart failure; I25.10 Atherosclerotic heart disease of native coronary artery without angina pectoris; I50.9 Heart failure, unspecified; J44.9 Chronic obstructive pulmonary disease, unspecified; K21.9 Gastro-esophageal reflux disease without esophagitis; M10.9 Gout, unspecified; R19.7 Diarrhea, unspecified; M21.379 Foot drop, unspecified foot; M47.812 Spondylosis without myelopathy or radiculopathy, cervical region; K59.00 Constipation, unspecified; M54.2 Cervicalgia; M54.5 Low back pain; R11.2 Nausea with vomiting, unspecified; Z95.5 Presence of coronary angioplasty implant and graft; Z99.3 Dependence on wheelchair
CPT/HCPCS: 36415; 74177; 80048; 80053; 81001; 82553; 83690; 84484; 85027; 93005; 94250; 94640; 96374; 96375; 96376; J1170; J2405; J7030; Q9967; S0028; 99285-25

== ENCOUNTER 2017-10-08 09:17 | Emergency (ER) | payer MEDICARE ==
[2017-10-08 10:02] LABS: ADD MAN DIFF? NO
[2017-10-08 10:05] LABS: BASO # 0.1 x10^3/uL (0.0-0.2); BASO % 1 % (0-3); EOS # 0.2 x10^3/uL (0.0-0.7); EOS % 4 % (0-3); HEMATOCRIT 38.9 % (39.0-53.0); HEMOGLOBIN 12.9 g/dL (13.0-17.5); LYMPH % 28 % (24-48); MEAN CORPUSCULAR HEMOGLOBIN 27 pg (25-35); MEAN CORPUSCULAR HGB CONC 33 g/dL (31-37); MEAN CORPUSCULAR VOLUME 82 fL (79-100); MONO # 0.7 x10^3/uL (0.0-1.1); MONO % 10 % (0-9); NEUT # 3.9 x10^3uL (1.8-7.7); NEUT % 57 % (31-73); PLATELET COUNT 249 x10^3/uL (140-400); RED BLOOD COUNT 4.74 x10^6/uL (4.30-5.70); RED CELL DISTRIBUTION WIDTH 16.2 % (11.5-14.5); WHITE BLOOD COUNT 6.9 x10^3/uL (4.0-11.0)
[2017-10-08 10:14] LABS: ANION GAP 7 (6-14); BLOOD UREA NITROGEN 11 mg/dL (8-26); BUN/CREATININE RATIO 37 (6-20); CARBON DIOXIDE 33 mmol/L (21-32); CHLORIDE 106 mmol/L (98-107); CREATININE 0.3 mg/dL (0.7-1.3); GFR > 300.0; GLUCOSE 108 mg/dL (70-99); POTASSIUM 3.9 mmol/L (3.5-5.1); SODIUM 146 mmol/L (136-145)
[2017-10-08 10:20] LABS: ALBUMIN 3.1 g/dL (3.4-5.0); ALBUMIN/GLOBULIN RATIO 0.8 (1.0-1.7); ALK PHOS 105 U/L (46-116); ALT (SGPT) 16 U/L (16-63); AST (SGOT) 13 U/L (15-37); TOTAL BILIRUBIN 0.3 mg/dL (0.2-1.0); TOTAL PROTEIN 6.9 g/dL (6.4-8.2)
[2017-10-08 10:24] LABS: TROPONINI < 0.017 ng/mL (0.000-0.055)
[2017-10-08 10:26] LABS: NT-PRO BNP 32 pg/mL (0-449)
== END 2017-10-08 12:30 | disposition home or self-care (01) ==
LOC: ER 09:17
DX: R06.02 Shortness of breath (principal); J30.2 Other seasonal allergic rhinitis; E78.00 Pure hypercholesterolemia, unspecified; I25.10 Atherosclerotic heart disease of native coronary artery without angina pectoris; Z95.5 Presence of coronary angioplasty implant and graft; I25.2 Old myocardial infarction
CPT/HCPCS: 36415; 71045; 80053; 83880; 84484; 85025; 93005; 99285-25

== ENCOUNTER 2017-12-14 05:17 | Emergency (ER) | payer MEDICARE ==
[2017-12-14 05:55] LABS: ADD MAN DIFF? NO
[2017-12-14] MEDS: IV NORMAL SALINE 1000ML BAG 1,000 ML IV (06:05)
[2017-12-14 06:10] LABS: ANION GAP 4 (6-14); BLOOD UREA NITROGEN 9 mg/dL (8-26); BUN/CREATININE RATIO 30 (6-20); CALCIUM 8.6 mg/dL (8.5-10.1); CARBON DIOXIDE 34 mmol/L (21-32); CHLORIDE 105 mmol/L (98-107); CREATININE 0.3 mg/dL (0.7-1.3); GFR > 300.0; GLUCOSE 141 mg/dL (70-99); POTASSIUM 3.6 mmol/L (3.5-5.1); SODIUM 143 mmol/L (136-145)
[2017-12-14 06:16] LABS: ALBUMIN/GLOBULIN RATIO 0.8 (1.0-1.7); ALK PHOS 109 U/L (46-116); ALT (SGPT) 15 U/L (16-63); AST (SGOT) 10 U/L (15-37); TOTAL BILIRUBIN 0.3 mg/dL (0.2-1.0); TOTAL PROTEIN 6.8 g/dL (6.4-8.2)
[2017-12-14 06:18] LABS: BASO # 0.1 x10^3/uL (0.0-0.2); BASO % 1 % (0-3); EOS # 0.3 x10^3/uL (0.0-0.7); EOS % 3 % (0-3); HEMATOCRIT 39.6 % (39.0-53.0); HEMOGLOBIN 13.1 g/dL (13.0-17.5); LYMPH # 2.1 x10^3/uL (1.0-4.8); LYMPH % 27 % (24-48); MEAN CORPUSCULAR HEMOGLOBIN 27 pg (25-35); MEAN CORPUSCULAR HGB CONC 33 g/dL (31-37); MEAN CORPUSCULAR VOLUME 82 fL (79-100); MONO # 0.6 x10^3/uL (0.0-1.1); MONO % 8 % (0-9); NEUT # 4.9 x10^3uL (1.8-7.7); NEUT % 61 % (31-73); PLATELET COUNT 245 x10^3/uL (140-400); RED BLOOD COUNT 4.81 x10^6/uL (4.30-5.70); RED CELL DISTRIBUTION WIDTH 16.7 % (11.5-14.5)
[2017-12-14 06:20] LABS: TROPONINI < 0.017 ng/mL (0.000-0.055)
[2017-12-14 06:24] LABS: CKMB MASS 2.3 ng/mL (0.0-3.6); CREATINE KINASE 37 U/L (39-308)
[2017-12-14 06:45] LABS: BACTERIA,URINE 0 /HPF (0-FEW); BILIRUBIN,URINE NEGATIVE (NEG); CLARITY,URINE CLEAR; COLOR,URINE YELLOW; GLUCOSE,URINE NEGATIVE (NEG); NITRITE,URINE NEGATIVE (NEG); PROTEIN,URINE NEGATIVE (NEG-TRACE); RBC,URINE OCC /HPF (0-2); SQUAMOUS EPITHELIAL CELL,UR FEW /LPF; UROBILINOGEN,URINE 0.2 mg/dL (0.2 mg/dL); WBC,URINE 0 /HPF (0-4)
== END 2017-12-14 07:20 | disposition home or self-care (01) ==
LOC: ER 05:17
DX: R53.1 Weakness (principal); R41.0 Disorientation, unspecified; R05 Cough; E78.00 Pure hypercholesterolemia, unspecified; I25.2 Old myocardial infarction; I25.10 Atherosclerotic heart disease of native coronary artery without angina pectoris; Z95.5 Presence of coronary angioplasty implant and graft
CPT/HCPCS: 36415; 71045; 80053; 81001; 82553; 84484; 85025; 87040; 93005; 96360; 99285-25; J7030